=== PATIENT | female | born 1945 | race Caucasian/White ===

== ENCOUNTER 2016-05-17 21:00 | Emergency (ER) | payer MEDICARE, BC ==
[2016-05-17] MEDS ORDERED: FAMOTIDINE 20 MG/2 ML VIAL IV STA (21:21)
[2016-05-17] MEDS ORDERED: SODIUM CHLORIDE 0.9% 1,000 ML IV ONE (21:21)
[2016-05-17] MEDS ORDERED: methylPREDNISolone SOD SUCCI 125 MG/2 ML VIAL IV STA (21:21)
--- NOTE | 2016-05-17 21:23 | ED ---
General Adult HPI - General Chief complaint: Allergic Reaction Stated complaint: Tongue swelling Time Seen by Provider: 05/17/16 21:15 Source: patient, family, RN notes reviewed, old records reviewed Mode of arrival: ambulatory Limitations: no limitations - History of Present Illness Initial comments: 70-year-old female presented for ALLERGIC reaction. Patient states that 3 hours ago she started to feel her tongue swelling. She states that she has multiple ALLERGIES but is unsure what she was exposed to today. She did take 75 mg of Benadryl about 8:30 this evening. She states that she is not having any shortness of breath at this time. She's not having trouble swallowing. She denies any chest pain. She denies any rash. - Related Data Home Medications Medication Instructions Recorded Confirmed Multivitamins, Thera [Multivitamin] 1 tab PO DAILY 05/13/14 10/27/15 Cholecalciferol [Vitamin D3] 1,000 unit PO DAILY 05/28/15 10/27/15 Cyanocobalamin [Vitamin B-12] 500 mcg PO DAILY 05/28/15 10/27/15 [place]-3 Fatty Acids/Fish Oil [Fish 1 cap PO DAILY 05/28/15 10/27/15 Oil 1,000 mg Softgel] Meclizine [Antivert] 25 mg PO TID PRN 05/30/15 10/27/15 Magnesium 200 mg PO DAILY 10/02/15 10/27/15 Previous Rx's Medication Instructions Recorded Cetirizine HCl [Zyrtec] 10 mg PO DAILY #10 tab 10/02/15 EPINEPHrine (Auto Inject) [Epipen] 0.3 mg IM ONCE PRN #1 syringe 10/02/15 Famotidine [Pepcid] 20 mg PO BID #10 tablet 10/02/15 predniSONE 50 mg PO DAILY #3 tab 10/02/15 predniSONE 40 mg PO DAILY #8 tab 10/27/15 predniSONE 50 mg PO DAILY #5 tab 05/17/16 Allergies Allergy/AdvReac Type Severity Reaction Status Date / Time cat dander Allergy Unknown Verified 05/17/16 21:14 dog dander Allergy Unknown Verified 05/17/16 21:14 Iodinated Contrast Media - Allergy Unknown Verified 05/17/16 21:14 Oral and [Iodinated Contrast Media - IV Dye] iodine Allergy Unknown Verified 05/17/16 21:14 mold Allergy Unknown Verified 05/17/16 21:14 ragweed pollen Allergy Unknown Verified 05/17/16 21:14 trees Allergy Unknown Uncoded 05/17/16 21:14 Review of Systems ROS Statement: Those systems with pertinent positive or pertinent negative responses have been documented in the HPI. ROS Other: All systems not noted in ROS Statement are negative. Past Medical History Past Medical History: GERD/Reflux, Osteoarthritis (OA) Additional Past Medical History / Comment(s): Chronic SIMEON. OCC DIZZYNESS. OCC GERD. VARICOSE VEINS. HEMATURIA. History of Any Multi-Drug Resistant Organisms: None Reported Past Surgical History: Adenoidectomy, Appendectomy, Section, Joint Replacement, Orthopedic Surgery, Tonsillectomy Additional Past Surgical History / Comment(s): Bret Knee Replacement; RT Wrist surgery Past Anesthesia/Blood Transfusion Reactions: Motion Sickness Additional Past Anesthesia/Blood Transfusion Reaction / Comment(s): ONLY HX OF NV W/ ETHER YEARS AGO. Past Psychological History: No Psychological Hx Reported Smoking Status: Former smoker Past Alcohol Use History: Occasional Additional Past Alcohol Use History / Comment(s): SMOKES 1/2 PPD X50 YEARS EST Past Drug Use History: None Reported - Past Family History Mother Family Medical History: Cancer Additional Family Medical History / Comment(s): lung cancer General Exam - General Exam Comments Initial Comments: General: Awake and Alert. No acute distress. Does not appear acutely ill. Eyes: PRAVEEN, EOM intact. No nystagmus. No scleral icterus. HENT: Atraumatic, normocephalic. Mucous membranes moist. Trachea midline. No throat edema or airway compromise. Tongue appears normal shape and size. Neck: The neck is supple, there is no tenderness or JVD. Cardiovascular: Regular rate and rhythm. No murmur, rub, or gallop is appreciated. Distal pulses intact. Respiratory: Lungs are clear to auscultation bilaterally. No wheezes, rales, rhonchi. No respiratory distress. Gastrointestinal: Soft, Nontender. No rebound or guarding. Non-distended. No masses or organomegaly noted. No CVA tenderness. Musculoskeletal: No tenderness. Normal ROM. No gross deformity. No strength deficits. Neurological: A&Ox3. CN II-XII grossly intact, There are no obvious motor or sensory deficits. Coordination appears grossly intact. Speech is normal. Skin: Skin is warm and dry and no rashes or lesions are noted. Psychiatric: Cooperative, appropriate mood & affect, normal judgment. Limitations: no limitations Course Vital Signs 05/17/16 05/17/16 21:09 22:06 Temperature 99.0 F 97.1 F L Pulse Rate 78 66 Respiratory 18 20 Rate Blood Pressure 188/86 174/80 O2 Sat by Pulse 95 96 Oximetry Medical Decision Making - Medical Decision Making 70-year-old female presenting for ALLERGIC reaction. Patient states she has a sensation of tongue swelling. On exam she does not appear to have any edema within her throat or her tongue. 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 She does have an EpiPen at home that she did not use this, she does not appear to require epinephrine at this time. Patient was given IV fluids, Solu-Medrol, Pepcid. No Benadryl at this time she took 75 mg 45 minutes prior to arrival. Patient was observed for an extended period time without any worsening of her symptoms. She states she is feeling improved. She is not on an ELIZABETH inhibitor. Discussed continuing Benadryl every 6 hours for the next 24 hours. Will also write prescription for prednisone. Patient does have an EpiPen at home she can use as a last resort. Discussed that if she has any return or worsening of symptoms return to the ER right away for further evaluation and observation. Patient was offered observation at this time although she states feeling better and I agree that she can go home at this time. Patient is discharged in stable condition. Family is agreeable with this plan as well. Disposition Clinical Impression: Allergic reaction Disposition: HOME SELF-CARE Condition: Stable Instructions: General Allergic Reaction (ED) Additional Instructions: Please take 25 mg of Benadryl by mouth every 6 hours for the next 24 hours. If you have any return or worsening symptoms please return to the ER right away Prescriptions: predniSONE 50 mg PO DAILY #5 tab Time of Disposition: 23:00
[2016-05-17 22:08] VITALS: RESP 20
[2016-05-17 23:55] VITALS: BP 169/75; PULSE 69; TEMP 97.7
== END 2016-05-17 23:55 | disposition home or self-care (01) ==
LOC: EC 21:00
DX: T78.40XA Allergy, unspecified, initial encounter (principal); Z87.891 Personal history of nicotine dependence; Z79.899 Other long term (current) drug therapy; Z91.041 Radiographic dye allergy status; Z91.048 Other nonmedicinal substance allergy status; Z88.8 Allergy status to other drugs, medicaments and biological substances
CPT/HCPCS: 99283 ×2; 96374 ×2; 96375 ×2; 96361 ×2; J2930

== ENCOUNTER → 2016-06-06 | Outpatient (CLI) | payer MEDICARE, BC ==
[2016-06-06 09:34] LABS: Basophils # (A) 0.1 k/uL (0-0.2); Basophils % (A) 1 %; CH 32.6; CHCM 33.8; Eosinophils # (A) 0.2 k/uL (0-0.7); Eosinophils % (A) 3 %; HCT 43.7 % (34.0-46.0); HGB 14.3 gm/dL (11.4-16.0); Luc # (Auto) 0.14; Luc % (Auto) 3; Lymphocytes # (A) 1.6 k/uL (1.0-4.8); Lymphocytes % (A) 35 %; MCH 31.7 pg (25.0-35.0); MCHC 32.7 g/dL (31.0-37.0); MCV 96.9 fL (80.0-100.0); Mean Platelet Volume 8.2; Monocytes # (A) 0.2 k/uL (0-1.0); Monocytes % (A) 5 %; Neutrophils # (A) 2.4 k/uL (1.3-7.7); Neutrophils % (A) 53 %; RBC 4.52 m/uL (3.80-5.40); RDW 12.6 % (11.5-15.5); WBC 4.5 k/uL (3.8-10.6); WBC (Perox) 4.39
[2016-06-06 09:59] LABS: Appearance,Urine Cloudy (Clear); Bacteria,Urine Rare /hpf; Bilirubin,Urine Negative (Negative); Glucose,Urine (UA) Negative (Negative); Ketones,Urine Negative (Negative); Leukocyte Esterase,Urine Negative (Negative); Mucus,Urine Rare /hpf; Nitrite,Urine Negative (Negative); PH, Urine 6.5 (5.0-8.0); Particle Count 2916; Protein,Urine Negative (Negative); RBC,Urine <1 /hpf (0-5); Squamous Epithelial Cell,Urine 3 /hpf (0-4); UA Billing (MACRO vs. MICRO) MICRO; Urobilinogen,Urine <2.0 mg/dL (<2.0); WBC,Urine <1 /hpf (0-5)
[2016-06-06 13:30] LABS: Anion Gap 12 mmol/L; Blood Urea Nitrogen 16 mg/dL (7-17); Calcium 9.5 mg/dL (8.4-10.2); Carbon Dioxide 21 mmol/L (22-30); Chloride 111 mmol/L (98-107); Glucose 96 mg/dL (74-99); Iron 115 ug/dL (37-170); Magnesium 2.2 mg/dL (1.6-2.3); Non-African American GFR(MDRD) 55 (>60 ml/min/1.73 sqM); Phosphorous 3.8 mg/dL (2.5-4.5); Potassium 4.5 mmol/L (3.5-5.1); Sodium 144 mmol/L (137-145); Uric Acid 4.7 mg/dL (3.7-7.4)
[2016-06-06 13:39] LABS: % Iron Saturation 36.4 % (20-50); Total Iron Binding Capacity 316 ug/dL (265-497)
== END | disposition home or self-care (01) ==
LOC: LABWHC1 09:01
PROVIDERS: ATTEND Internal Medicine Nephrology
DX: N18.3 Chronic kidney disease, stage 3 (moderate) (principal); D64.9 Anemia, unspecified; E55.9 Vitamin D deficiency, unspecified; N25.81 Secondary hyperparathyroidism of renal origin; M10.9 Gout, unspecified; N39.0 Urinary tract infection, site not specified
CPT/HCPCS: 36415; 80048; 81001; 82306; 82728; 83540; 83550; 83735; 83970; 84100; 84550; 85025

== ENCOUNTER → 2016-06-14 | Outpatient (CLI) | payer MEDICARE, BC ==
--- NOTE | 2016-06-17 07:38 | MM ---
Reason for exam: follow-up at short interval from prior study. Last mammogram was performed 6 months ago. History: Patient is postmenopausal. Physical Findings: Nurse did not find any significant physical abnormalities on exam. MG 3D Diag Mammo W/Cad JESSI Bilateral CC and MLO view(s) were taken. Prior study comparison: December 12, 2015, right breast MG 3d diag mammo w/cad RT. May 30, 2015, bilateral MG 3d diag mammo w/cad JESSI. The breast tissue is heterogeneously dense. This may lower the sensitivity of mammography. Finding: There are typically benign punctate calcifications. Focal asymmetry lower inner right breast is stable. No significant changes in finding since December 12, 2015 and May 30, 2015. These results were verbally communicated with the patient and result sheet given to the patient on 06/14/16. ASSESSMENT: Benign, BI-RAD 2 RECOMMENDATION: Routine screening mammogram of both breasts in 1 year.
== END | disposition home or self-care (01) ==
LOC: RADMAMWWP 08:33
PROVIDERS: ATTEND Family Medicine
DX: R92.8 Other abnormal and inconclusive findings on diagnostic imaging of breast (principal)
CPT/HCPCS: G0204; G0279

== ENCOUNTER 2016-06-16 15:18 | Emergency (ER) | payer MEDICARE, BC ==
[2016-06-16] MEDS ORDERED: diphenhydrAMINE 50 MG/ML 1 ML VIAL IVP STA (15:37)
[2016-06-16] MEDS ORDERED: FAMOTIDINE 20 MG/2 ML VIAL IV STA (15:37)
[2016-06-16] MEDS ORDERED: methylPREDNISolone SOD SUCCI 125 MG/2 ML VIAL IV STA (15:38)
--- NOTE | 2016-06-16 15:44 | ED ---
Allergic Reaction HPI - General Source: patient Mode of arrival: ambulatory Limitations: no limitations - History of Present Illness MD Complaint: other (Tongue swelling) Onset/Timin -: hour(s) Exposure: unknown Symptoms: orolingual swelling Severity: moderate Treatment Prior to Arrival: none Previous Allergy History: angioedema <John Canela - Last Filed: 06/16/16 18:19> <Todd Gomez - Last Filed: 06/16/16 19:27> - General Chief complaint: Allergic Reaction Stated complaint: Swollen Tongue Time Seen by Provider: 06/16/16 15:32 - History of Present Illness Initial Comments: 's patient is 70-year-old woman who complains approximate 2 hours of tongue swelling. The patient states that she has had 4 previous episodes of this and has seen an wind tunnel mechanic. They are not sure what is causing the angioedema at this point. The patient denies dyspnea, cough or wheeze. She denies nausea, vomiting and diarrhea. (John Canela) - Related Data Home Medications Medication Instructions Recorded Confirmed Multivitamins, Thera [Multivitamin] 1 tab PO DAILY 05/13/14 06/16/16 Cholecalciferol [Vitamin D3] 2,000 unit PO DAILY 05/28/15 06/16/16 Cyanocobalamin [Vitamin B-12] 500 mcg PO DAILY 05/28/15 06/16/16 Meclizine [Antivert] 25 mg PO TID PRN 05/30/15 06/16/16 Magnesium 400 mg PO DAILY 10/02/15 06/16/16 Acetaminophen Tab [Tylenol Tab] 1,000 mg PO BID PRN 06/16/16 06/16/16 diphenhydrAMINE [Benadryl] 75 mg PO BID PRN 06/16/16 06/16/16 Previous Rx's Medication Instructions Recorded Famotidine [Pepcid] 20 mg PO BID #20 tablet 06/16/16 diphenhydrAMINE [Benadryl] 50 mg PO QID PRN #20 capsule 06/16/16 methylPREDNISolone Dose Pack 4 mg PO DIRECTED #21 package 06/16/16 [Medrol Dose Pack] Allergies Allergy/AdvReac Type Severity Reaction Status Date / Time cat dander Allergy Unknown Verified 05/17/16 21:14 dog dander Allergy Unknown Verified 05/17/16 21:14 Iodinated Contrast Media - Allergy Unknown Verified 06/16/16 16:00 Oral and [Iodinated Contrast Media - IV Dye] iodine Allergy Unknown Verified 05/17/16 21:14 mold Allergy Unknown Verified 05/17/16 21:14 ragweed pollen Allergy Unknown Verified 05/17/16 21:14 trees Allergy Unknown Uncoded 05/17/16 21:14 Review of Systems ROS Other: All systems not noted in ROS Statement are negative. Constitutional: Denies: fever, chills Eyes: Denies: eye pain, eye discharge ENT: Reports: other (Tongue swelling). Denies: throat pain, congestion Respiratory: Denies: cough, dyspnea, wheezes Cardiovascular: Denies: chest pain, edema, syncope Gastrointestinal: Denies: abdominal pain, vomiting, diarrhea Skin: Denies: rash Neurological: Denies: headache <HiltonJohn - Last Filed: 06/16/16 18:19> ROS Other: All systems not noted in ROS Statement are negative. <Todd Gomez - Last Filed: 06/16/16 19:27> ROS Statement: Those systems with pertinent positive or pertinent negative responses have been documented in the HPI. Past Medical History Past Medical History: GERD/Reflux, Osteoarthritis (OA) Additional Past Medical History / Comment(s): Chronic SIMEON. OCC DIZZYNESS. OCC GERD. VARICOSE VEINS. HEMATURIA. History of Any Multi-Drug Resistant Organisms: None Reported Past Surgical History: Adenoidectomy, Appendectomy, Section, Joint Replacement, Orthopedic Surgery, Tonsillectomy Additional Past Surgical History / Comment(s): Bret Knee Replacement; RT Wrist surgery Past Anesthesia/Blood Transfusion Reactions: Motion Sickness Additional Past Anesthesia/Blood Transfusion Reaction / Comment(s): ONLY HX OF NV W/ ETHER YEARS AGO. Past Psychological History: No Psychological Hx Reported Smoking Status: Former smoker Past Alcohol Use History: Occasional Additional Past Alcohol Use History / Comment(s): SMOKES 1/2 PPD X50 YEARS EST Past Drug Use History: None Reported - Past Family History Mother Family Medical History: Cancer Additional Family Medical History / Comment(s): lung cancer <HiltonJohn - Last Filed: 06/16/16 18:19> General Exam Limitations: no limitations General appearance: alert, in no apparent distress Head exam: Present: atraumatic, normocephalic Eye exam: Present: normal appearance. Absent: scleral icterus, conjunctival injection ENT exam: Present: mucous membranes moist, other (There is symmetric tongue swelling, moderate degree. Patient is able to handle her own secretions and there is no dyspnea) Neck exam: Present: normal inspection, full ROM. Absent: tenderness, lymphadenopathy Respiratory exam: Present: normal lung sounds bilaterally. Absent: respiratory distress, wheezes, rales, rhonchi, stridor Cardiovascular Exam: Present: regular rate, normal rhythm, normal heart sounds. Absent: systolic murmur, diastolic murmur, rubs, gallop GI/Abdominal exam: Present: soft. Absent: distended, tenderness, guarding, rebound Extremities exam: Present: normal inspection, normal capillary refill. Absent: pedal edema, calf tenderness Neurological exam: Present: alert Skin exam: Present: warm, dry, intact, normal color. Absent: rash <John Canela - Last Filed: 06/16/16 18:19> Course <John Canela - Last Filed: 06/16/16 18:19> <Todd Gomez - Last Filed: 06/16/16 19:27> Vital Signs 06/16/16 06/16/16 06/16/16 15:21 15:46 16:16 Temperature 98.2 F Pulse Rate 71 70 70 Respiratory 18 18 18 Rate Blood Pressure 197/87 180/87 179/97 O2 Sat by Pulse 100 99 100 Oximetry 06/16/16 06/16/16 06/16/16 16:46 16:59 18:00 Temperature 97.8 F Pulse Rate 72 70 74 Respiratory 16 18 20 Rate Blood Pressure 198/81 167/72 157/77 O2 Sat by Pulse 99 100 98 Oximetry - Reevaluation(s) Reevaluation #2: 06/16/16 19:27 Patient is doing well at this time she can protrude her tongue swelling is better she can swallow. Was sent home with a Medrol Dosepak Pepcid and Benadryl. She is to return if any difficulty. (Todd Gomez) Disposition <John Canela - Last Filed: 06/16/16 18:19> Time of Disposition: 19:27 <Todd Gomez - Last Filed: 06/16/16 19:27> Clinical Impression: Angioedema Disposition: HOME SELF-CARE Condition: Fair Instructions: Angioedema (ED) Prescriptions: Famotidine [Pepcid] 20 mg PO BID #20 tablet diphenhydrAMINE [Benadryl] 50 mg PO QID PRN #20 capsule PRN Reason: Allergic Reaction methylPREDNISolone Dose Pack [Medrol Dose Pack] 4 mg PO DIRECTED #21 package Referrals: Lizzy Gloria III, MD [Primary Care Provider] - 1-2 days
[2016-06-16 19:51] VITALS: BP 172/82; PULSE 80; RESP 18; TEMP 97.6
== END 2016-06-16 19:51 | disposition home or self-care (01) ==
LOC: EC 15:18
DX: T78.3XXA Angioneurotic edema, initial encounter (principal); Z79.899 Other long term (current) drug therapy; Z91.041 Radiographic dye allergy status; Z91.048 Other nonmedicinal substance allergy status; K21.9 Gastro-esophageal reflux disease without esophagitis; Z87.891 Personal history of nicotine dependence
CPT/HCPCS: 36415; 86160 ×2; 86161; 99283; 96374; 96375; J1200; J2930

== ENCOUNTER → 2016-06-21 | Outpatient (CLI) | payer MEDICARE, BC ==
--- NOTE | 2016-06-21 19:50 | CT ---
EXAMINATION TYPE: CT chest wo con DATE OF EXAM: 06/21/2016 7:16 PM COMPARISON: NONE HISTORY: Pt states of lung nodule found on CXR. CT DLP: 310.1 mGycm. Automated Exposure Control for Dose Reduction was Utilized. TECHNIQUE: CT scan of the thorax is performed without IV contrast. FINDINGS: LUNGS: The lungs are grossly clear, there is no concerning parenchymal mass. A 5 mm peripheral pulmon teofilo nodule is seen within the right upper lobe. Nodular right apical pleural parenchymal scarring is also noted. No other pulmonary nodules are seen. There is no pleural effusion or pneumothorax seen. The tracheobronchial tree is patent. MEDIASTINUM: Lack of IV contrast is noted to limit evaluation for mediastinal and especially hilar ad enopathy. There are no definitive greater than 1 cm hilar or mediastinal lymph nodes. No cardiomega ly or pericardial effusion is seen. OTHER: Ectasia and tortuosity of the descending thoracic aorta just proximal to the diaphragmatic hia tus is evident as the aorta measures 3.3 cm. Surgical clips are noted within the right upper quadrant . Additionally gastrohepatic varices are seen. No esophageal varices noted. Compression deformity is noted of a lower thoracic vertebrae with a Schmorl's node and endplate changes. Vacuum disc disease i s also seen. No retrolisthesis or retropulsion. IMPRESSION: 1. 5 mm right upper lobe pulmonary nodule as seen on the prior chest radiograph. Nodular right apical pleural parenchymal scarring is also noted. Follow-up CT is recommended in 6-12 months for further e valuation. 2. Although there is limited evaluation of the hilar structures due to the lack of intravenous contra st there is no gross evidence for hilar or mediastinal lymphadenopathy. 3. Lower thoracic compression deformity of indeterminate age. 4. Ectasia and tortuosity of the descending thoracic aorta measuring up to 3.3 cm. 5. Gastrohepatic ligament varices.
== END | disposition home or self-care (01) ==
LOC: RADCTMAIN 19:03
PROVIDERS: ATTEND Family Medicine
DX: R91.1 Solitary pulmonary nodule (principal); J98.4 Other disorders of lung; I77.810 Thoracic aortic ectasia
CPT/HCPCS: 71250

== ENCOUNTER → 2016-11-04 | Outpatient (CLI) | payer MEDICARE, BC ==
[2016-11-04 10:00] LABS: Basophils # (A) 0.1 k/uL (0-0.2); Basophils % (A) 2 %; CH 32.7; CHCM 34.1; Eosinophils # (A) 0.2 k/uL (0-0.7); Eosinophils % (A) 6 %; HCT 44.1 % (34.0-46.0); HDW 2.37; HGB 14.7 gm/dL (11.4-16.0); Luc # (Auto) 0.07; Luc % (Auto) 2; Lymphocytes # (A) 1.7 k/uL (1.0-4.8); Lymphocytes % (A) 41 %; MCH 32.2 pg (25.0-35.0); MCHC 33.4 g/dL (31.0-37.0); MCV 96.4 fL (80.0-100.0); Mean Platelet Volume 9.3; Monocytes # (A) 0.2 k/uL (0-1.0); Monocytes % (A) 5 %; Neutrophils # (A) 1.9 k/uL (1.3-7.7); Neutrophils % (A) 46 %; RBC 4.57 m/uL (3.80-5.40); WBC 4.1 k/uL (3.8-10.6); WBC (Perox) 3.98
[2016-11-04 10:26] LABS: Appearance,Urine Clear (Clear); Bilirubin,Urine Negative (Negative); Glucose,Urine (UA) Negative (Negative); Ketones,Urine Negative (Negative); Leukocyte Esterase,Urine Negative (Negative); Nitrite,Urine Negative (Negative); Protein,Urine Negative (Negative); Specific Gravity,Urine 1.011 (1.001-1.035); UA Billing (MACRO vs. MICRO) CHEM; Urobilinogen,Urine <2.0 mg/dL (<2.0)
[2016-11-04 11:59] LABS: Anion Gap 9 mmol/L; Blood Urea Nitrogen 9 mg/dL (7-17); Calcium 9.8 mg/dL (8.4-10.2); Carbon Dioxide 24 mmol/L (22-30); Chloride 112 mmol/L (98-107); Glucose 84 mg/dL (74-99); Iron 136 ug/dL (37-170); Magnesium 2.2 mg/dL (1.6-2.3); Non-African American GFR(MDRD) 54 (>60 ml/min/1.73 sqM); Phosphorous 3.4 mg/dL (2.5-4.5); Potassium 4.4 mmol/L (3.5-5.1); Sodium 145 mmol/L (137-145); Uric Acid 4.8 mg/dL (3.7-7.4)
[2016-11-04 12:07] LABS: % Iron Saturation 43.5 % (20-50); Total Iron Binding Capacity 313 ug/dL (265-497)
== END | disposition home or self-care (01) ==
LOC: LABWHC1 09:40
PROVIDERS: ATTEND Nurse Practitioner Family
DX: N18.3 Chronic kidney disease, stage 3 (moderate) (principal); D64.9 Anemia, unspecified; E55.9 Vitamin D deficiency, unspecified; E21.3 Hyperparathyroidism, unspecified; M10.9 Gout, unspecified; R80.9 Proteinuria, unspecified
CPT/HCPCS: 36415; 80048; 81003; 82306; 82728; 83540; 83550; 83735; 83970; 84100; 84550; 85025

== ENCOUNTER → 2016-12-30 | Outpatient (CLI) | payer MEDICARE, BC ==
--- NOTE | 2016-12-30 09:06 | CT ---
EXAMINATION TYPE: CT chest wo con DATE OF EXAM: 12/30/2016 COMPARISON: Prior CT chest 06/21/2016 HISTORY: Solitary pulmonary nodule CT DLP: 598 mGycm. Automated Exposure Control for Dose Reduction was Utilized. TECHNIQUE: CT scan of the thorax is performed without IV contrast. FINDINGS: Lack of contrast could compromise sensitivity. LUNGS: The right lateral aspect of the trachea shows a luminal irregularity, minimal soft tissue focu s on axial image 13, retained secretions are within the differential. There is no pleural or pericard ial effusion present. Some minimal increased density seen adjacent to the right lateral aspect of the spine on axial image 43 is thought likely to represent some localized atelectasis, difficult to excl ude minimal pneumonitis. Posterior costophrenic sulcus on the right and left shows some probable mini mal dependent atelectatic change. Some minimal right upper lobe subpleural increased density likely o f no significance clinically is again seen. Scattered emphysematous changes are present. Mild ectasia of the descending aorta. There are atherosclerotic calcifications. Coronary artery calcifications are present. There may be a small hiatal hernia present. Retrocaval pr etracheal lymph node shows a short axis of approximately 12 mm. No axillary or hilar adenopathy. IMPRESSION: Stable exam, benign findings as described. Patient shows postnephrectomy change on the right. MEDIASTINUM: Lack of IV contrast is noted to limit evaluation for mediastinal and especially hilar ad enopathy. There are no definitive greater than 1 cm hilar or mediastinal lymph nodes. No cardiomega ly or pericardial effusion is seen. OTHER: No additional significant abnormality is seen. IMPRESSION:
== END | disposition home or self-care (01) ==
LOC: RADCTMAIN 06:49
PROVIDERS: ATTEND Internal Medicine Critical Care Medicine
DX: R91.1 Solitary pulmonary nodule (principal)
CPT/HCPCS: 71250

== ENCOUNTER → 2017-02-06 | Outpatient (CLI) | payer MEDICARE, BC ==
[2017-02-06 08:18] LABS: Calcium 9.7 mg/dL (8.4-10.2); Potassium 4.1 mmol/L (3.5-5.1)
== END | disposition home or self-care (01) ==
LOC: LABWHC1 07:48
PROVIDERS: ATTEND Nurse Practitioner Family
DX: N18.3 Chronic kidney disease, stage 3 (moderate) (principal)
CPT/HCPCS: 36415; 80048

== ENCOUNTER → 2017-04-23 | Outpatient (CLI) | payer MEDICARE, BC ==
[2017-04-23 09:00] LABS: Basophils # (A) 0.1 k/uL (0-0.2); Basophils % (A) 1 %; Eosinophils # (A) 0.2 k/uL (0-0.7); Eosinophils % (A) 4 %; HCT 44.1 % (34.0-46.0); HGB 14.5 gm/dL (11.4-16.0); Lymphocytes # (A) 1.8 k/uL (1.0-4.8); Lymphocytes % (A) 42 %; MCH 31.9 pg (25.0-35.0); MCV 96.7 fL (80.0-100.0); Mean Platelet Volume 8.9; Monocytes # (A) 0.3 k/uL (0-1.0); Monocytes % (A) 7 %; Neutrophils # (A) 1.9 k/uL (1.3-7.7); Neutrophils % (A) 44 %; Platelet Count 177 k/uL (150-450); RBC 4.56 m/uL (3.80-5.40); RDW 13.2 % (11.5-15.5); WBC 4.4 k/uL (3.8-10.6)
[2017-04-23 09:01] LABS: Appearance,Urine Clear (Clear); Bilirubin,Urine Negative (Negative); Blood,Urine Negative (Negative); Color,Urine Yellow; Glucose,Urine (UA) Negative (Negative); Ketones,Urine Trace (Negative); Leukocyte Esterase,Urine Negative (Negative); Nitrite,Urine Negative (Negative); Protein,Urine Negative (Negative); Specific Gravity,Urine 1.012 (1.001-1.035); Urobilinogen,Urine <2.0 mg/dL (<2.0)
[2017-04-23 09:02] LABS: Anion Gap 11 mmol/L; Blood Urea Nitrogen 20 mg/dL (7-17); Calcium 10.2 mg/dL (8.4-10.2); Carbon Dioxide 23 mmol/L (22-30); Chloride 108 mmol/L (98-107); Glucose 85 mg/dL (74-99); Magnesium 2.2 mg/dL (1.6-2.3); Phosphorus 4.1 mg/dL (2.5-4.5); Potassium 4.2 mmol/L (3.5-5.1); Sodium 142 mmol/L (137-145); Uric Acid 5.2 mg/dL (3.7-7.4)
[2017-04-23 16:13] LABS: Iron Saturation 35.48 (12.00-45.00)
[2017-04-23 16:27] LABS: Vitamin D 25 Hydroxy 36.5 ng/mL (30.0-100.0)
[2017-04-23 17:16] LABS: Parathyroid Hormone Intact 31.8 pg/mL (14.0-72.0)
== END | disposition home or self-care (01) ==
LOC: LABWHC1 08:06
PROVIDERS: ATTEND Nurse Practitioner Family
DX: E55.9 Vitamin D deficiency, unspecified (principal); D63.1 Anemia in chronic kidney disease; N18.3 Chronic kidney disease, stage 3 (moderate); M10.9 Gout, unspecified; N39.0 Urinary tract infection, site not specified
CPT/HCPCS: 36415; 80048; 81003; 82306; 82728; 83540; 83550; 83735; 83970; 84100; 84550; 85025

== ENCOUNTER → 2017-06-03 | Outpatient (CLI) | payer MEDICARE, BC ==
--- NOTE | 2017-06-04 10:39 | MM ---
Reason for exam: screening (asymptomatic). Last mammogram was performed 1 year ago. History: Patient is postmenopausal. Physical Findings: A clinical breast exam by your physician is recommended on an annual basis and results should be correlated with mammographic findings. MG 3D Screening Mammo W/Cad Bilateral CC and MLO view(s) were taken. Prior study comparison: June 14, 2016, bilateral MG 3d diag mammo w/cad JESSI. December 12, 2015, right breast MG 3d diag mammo w/cad RT. The breast tissue is heterogeneously dense. This may lower the sensitivity of mammography. Stable benign calcifications bilaterally. No significant changes when compared with prior studies. ASSESSMENT: Benign, BI-RAD 2 RECOMMENDATION: Routine screening mammogram of both breasts in 1 year.
== END | disposition home or self-care (01) ==
LOC: RADMAMWWP 07:32
PROVIDERS: ATTEND Family Medicine
DX: Z12.31 Encounter for screening mammogram for malignant neoplasm of breast (principal)
CPT/HCPCS: 77063; 77067

== ENCOUNTER → 2017-08-08 | Outpatient (CLI) | payer MEDICARE, BC ==
[2017-08-08 09:03] LABS: Calcium 9.9 mg/dL (8.4-10.2); Potassium 4.5 mmol/L (3.5-5.1)
== END | disposition home or self-care (01) ==
LOC: LABWHC1 07:48
PROVIDERS: ATTEND Nurse Practitioner Family
DX: N18.3 Chronic kidney disease, stage 3 (moderate) (principal)
CPT/HCPCS: 36415; 80048

== ENCOUNTER → 2017-11-17 | Outpatient (CLI) | payer MEDICARE, BC ==
[2017-11-17 10:20] LABS: Appearance,Urine Clear (Clear); Bilirubin,Urine Negative (Negative); Blood,Urine Negative (Negative); Color,Urine Light Yellow; Glucose,Urine (UA) Negative (Negative); Ketones,Urine Negative (Negative); Leukocyte Esterase,Urine Negative (Negative); Nitrite,Urine Negative (Negative); PH, Urine 6.5 (5.0-8.0); Protein,Urine Negative (Negative); Specific Gravity,Urine 1.011 (1.001-1.035); Urobilinogen,Urine <2.0 mg/dL (<2.0)
[2017-11-17 10:31] LABS: Basophils # (A) 0.1 k/uL (0-0.2); Basophils % (A) 1 %; Eosinophils # (A) 0.3 k/uL (0-0.7); Eosinophils % (A) 6 %; HCT 42.2 % (34.0-46.0); HGB 13.6 gm/dL (11.4-16.0); Lymphocytes # (A) 2.1 k/uL (1.0-4.8); Lymphocytes % (A) 48 %; MCH 32.2 pg (25.0-35.0); MCHC 32.1 g/dL (31.0-37.0); MCV 100.1 fL (80.0-100.0); Monocytes # (A) 0.2 k/uL (0-1.0); Monocytes % (A) 4 %; Neutrophils # (A) 1.7 k/uL (1.3-7.7); Neutrophils % (A) 39 %; Platelet Count 171 k/uL (150-450); RBC 4.22 m/uL (3.80-5.40); RDW 13.1 % (11.5-15.5); WBC 4.4 k/uL (3.8-10.6)
[2017-11-17 10:47] LABS: Albumin 3.7 g/dL (3.5-5.0); Calcium 9.5 mg/dL (8.4-10.2); Phosphorus 4.5 mg/dL (2.5-4.5); Potassium 4.6 mmol/L (3.5-5.1); Uric Acid 3.9 mg/dL (3.7-7.4)
[2017-11-17 16:52] LABS: Iron Saturation 32.38 (12.00-45.00); Vitamin D 25 Hydroxy 47.9 ng/mL (30.0-100.0)
== END | disposition home or self-care (01) ==
LOC: LABWHC1 09:24
PROVIDERS: ATTEND Nurse Practitioner Family
DX: E55.9 Vitamin D deficiency, unspecified (principal); D63.1 Anemia in chronic kidney disease; N18.3 Chronic kidney disease, stage 3 (moderate); N39.0 Urinary tract infection, site not specified; M10.9 Gout, unspecified
CPT/HCPCS: 36415; 80048; 81003; 82040; 82306; 82728; 83540; 83550; 83735; 83970; 84100; 84550; 85025

== ENCOUNTER → 2018-05-15 | Outpatient (CLI) | payer MEDICARE, BC ==
[2018-05-15 09:51] LABS: Basophils # (A) 0.1 k/uL (0-0.2); Basophils % (A) 2 %; Eosinophils # (A) 0.3 k/uL (0-0.7); Eosinophils % (A) 6 %; HCT 42.5 % (34.0-46.0); HGB 13.4 gm/dL (11.4-16.0); Lymphocytes # (A) 1.8 k/uL (1.0-4.8); Lymphocytes % (A) 41 %; MCH 31.3 pg (25.0-35.0); MCHC 31.5 g/dL (31.0-37.0); MCV 99.1 fL (80.0-100.0); Mean Platelet Volume 7.2; Monocytes # (A) 0.2 k/uL (0-1.0); Monocytes % (A) 5 %; Neutrophils # (A) 1.9 k/uL (1.3-7.7); Neutrophils % (A) 44 %; Platelet Count 179 k/uL (150-450); RBC 4.29 m/uL (3.80-5.40); RDW 12.8 % (11.5-15.5); WBC 4.3 k/uL (3.8-10.6)
[2018-05-15 09:55] LABS: Appearance,Urine Cloudy (Clear); Bacteria,Urine Few /hpf; Bilirubin,Urine Negative (Negative); Blood,Urine Negative (Negative); Color,Urine Yellow; Glucose,Urine (UA) Negative (Negative); Hyaline Casts,Urine 2 /lpf (0-2); Ketones,Urine Negative (Negative); Leukocyte Esterase,Urine Large (Negative); Mucus,Urine Rare /hpf; Nitrite,Urine Positive (Negative); Protein,Urine Negative (Negative); RBC,Urine 2 /hpf (0-5); Specific Gravity,Urine 1.012 (1.001-1.035); Urobilinogen,Urine <2.0 mg/dL (<2.0); WBC,Urine 157 /hpf (0-5)
[2018-05-15 16:13] LABS: Iron Saturation 25.71 (12.00-45.00)
[2018-05-15 16:21] LABS: Vitamin D 25 Hydroxy 31.7 ng/mL (30.0-100.0)
[2018-05-15 16:24] LABS: Anion Gap 6.7 mmol/L (4.00-12.00); Calcium 9.6 mg/dL (8.7-10.3); Carbon Dioxide 25.3 mmol/L (21.6-31.8); Magnesium 1.9 mg/dL (1.5-2.4); Phosphorus 4.2 mg/dL (2.4-5.1); Uric Acid 3.7 mg/dL (2.9-7.7)
[2018-05-15 16:44] LABS: Parathyroid Hormone Intact 27.1 pg/mL (14.0-72.0)
== END ==
LOC: LABWHC1 09:14
PROVIDERS: ATTEND Internal Medicine Nephrology
DX: E55.9 Vitamin D deficiency, unspecified (principal); E21.3 Hyperparathyroidism, unspecified; N39.0 Urinary tract infection, site not specified; M10.9 Gout, unspecified; D63.1 Anemia in chronic kidney disease; N18.3 Chronic kidney disease, stage 3 (moderate)
CPT/HCPCS: 36415; 80048; 81001; 82306; 82728; 83540; 83550; 83735; 83970; 84100; 84550; 85025

== ENCOUNTER → 2018-06-04 | Outpatient (CLI) | payer MEDICARE, BC ==
--- NOTE | 2018-06-08 08:15 | MM ---
Reason for exam: screening (asymptomatic). Last mammogram was performed 1 year ago. History: Patient is postmenopausal. Physical Findings: A clinical breast exam by your physician is recommended on an annual basis and results should be correlated with mammographic findings. MG 3D Screening Mammo W/Cad Bilateral CC and MLO view(s) were taken. Prior study comparison: June 03, 2017, bilateral MG 3d screening mammo w/cad. June 14, 2016, bilateral MG 3d diag mammo w/cad JESSI. The breast tissue is heterogeneously dense. This may lower the sensitivity of mammography. No significant changes when compared with prior studies. ASSESSMENT: Benign, BI-RAD 2 RECOMMENDATION: Routine screening mammogram of both breasts in 1 year.
== END | disposition home or self-care (01) ==
LOC: RADMAMWWP 09:45
PROVIDERS: ATTEND Family Medicine
DX: Z12.31 Encounter for screening mammogram for malignant neoplasm of breast (principal)
CPT/HCPCS: 77063; 77067

== ENCOUNTER 2018-06-30 23:42 | Emergency (ER) | payer MEDICARE, BC ==
[2018-06-30 23:49] VITALS: BP 172/88; PULSE 69; RESP 16; TEMP 98.4
[2018-07-01] MEDS ORDERED: methylPREDNISolone SOD SUCCI 125 MG/2 ML VIAL IM ONE (00:35)
--- NOTE | 2018-07-01 00:35 | ED ---
Allergic Reaction HPI - General Chief complaint: Allergic Reaction Stated complaint: Swelling of tongue Time Seen by Provider: 06/30/18 23:52 Source: patient Mode of arrival: ambulatory Limitations: no limitations - History of Present Illness Initial Comments: Sheri Rao a pleasant 72-year-old female with a history of idiopathic angioedema of the tongue. Patient presents the emergency department today with report that around 6 PM she noticed her tongue was swelling she took 50 mg of oral Benadryl. The evening she felt like her uvula may be swelling so she took an additional 25 and then immediately prior to arrival in the emergency department took an additional 25 mg of Benadryl. Patient reports she feels that the swelling of her tongue has resolved however she feels discomfort with swallowing and was concerned she may have persistent swelling of her uvula which she is having the past. - Related Data Home Medications Medication Instructions Recorded Confirmed Multivitamins, Thera [Multivitamin 1 tab PO DAILY 05/13/14 06/16/16 (formulary)] Cholecalciferol [Vitamin D3] 2,000 unit PO DAILY 05/28/15 06/16/16 Cyanocobalamin [Vitamin B-12] 500 mcg PO DAILY 05/28/15 06/16/16 Meclizine [Antivert] 25 mg PO TID PRN 05/30/15 06/16/16 Magnesium 400 mg PO DAILY 10/02/15 06/16/16 Acetaminophen Tab [Tylenol Tab] 1,000 mg PO BID PRN 06/16/16 06/16/16 diphenhydrAMINE [Benadryl] 75 mg PO BID PRN 06/16/16 06/16/16 Previous Rx's Medication Instructions Recorded Famotidine [Pepcid] 20 mg PO BID #20 tablet 06/16/16 diphenhydrAMINE [Benadryl] 50 mg PO QID PRN #20 capsule 06/16/16 methylPREDNISolone Dose Pack 4 mg PO DIRECTED #21 package 06/16/16 [Medrol Dose Pack] Allergies Allergy/AdvReac Type Severity Reaction Status Date / Time cat dander Allergy Unknown Verified 06/30/18 23:50 dog dander Allergy Unknown Verified 06/30/18 23:50 Iodinated Contrast- Oral and Allergy Unknown Verified 06/30/18 23:50 IV Dye [Iodinated Contrast Media - IV Dye] iodine Allergy Unknown Verified 06/30/18 23:50 mold Allergy Unknown Verified 06/30/18 23:50 ragweed pollen Allergy Unknown Verified 06/30/18 23:50 trees Allergy Unknown Uncoded 06/30/18 23:50 Review of Systems ROS Statement: Those systems with pertinent positive or pertinent negative responses have been documented in the HPI. ROS Other: All systems not noted in ROS Statement are negative. Past Medical History Past Medical History: GERD/Reflux, Osteoarthritis (OA) Additional Past Medical History / Comment(s): Chronic SIMEON. OCC DIZZYNESS. OCC GERD. VARICOSE VEINS. HEMATURIA. History of Any Multi-Drug Resistant Organisms: None Reported Past Surgical History: Adenoidectomy, Appendectomy, Section, Joint Replacement, Orthopedic Surgery, Tonsillectomy Additional Past Surgical History / Comment(s): Bret Knee Replacement; RT Wrist surgery Past Anesthesia/Blood Transfusion Reactions: Motion Sickness Additional Past Anesthesia/Blood Transfusion Reaction / Comment(s): ONLY HX OF NV W/ ETHER YEARS AGO. Past Psychological History: No Psychological Hx Reported Smoking Status: Former smoker Past Alcohol Use History: Occasional Past Drug Use History: None Reported - Past Family History Mother Family Medical History: Cancer Additional Family Medical History / Comment(s): lung cancer General Exam - General Exam Comments Initial Comments: Physical Exam GENERAL: Patient is well-developed and well-nourished. Patient is nontoxic and well- hydrated and is in no distress. HENT: Normocephalic, Atraumatic. Normal oropharynx, no angioedema noted No angioedema of the uvula No cervical adenopathy No stridor EYES: PERRL, EOMI PULMONARY: Unlabored respirations. No audible rales rhonchi or wheezing was noted. CARDIOVASCULAR: There is a regular rate and rhythm without any murmurs gallops or rubs. ABDOMEN: Soft and nontender with normal bowel sounds. SKIN: Skin is clear with no lesions or rashes and otherwise unremarkable. : Deferred NEUROLOGIC: Patient is alert and oriented x3. Moving all extremities spontaneously MUSCULOSKELETAL: Normal extremities with adequate strength and full range of motion. No lower extremity swelling or edema. No calf tenderness. PSYCHIATRIC: Normal psychiatric evaluation. Limitations: no limitations Limitations: no limitations Course Vital Signs 06/30/18 23:43 Temperature 98.4 F Pulse Rate 69 Respiratory 16 Rate Blood Pressure 172/88 O2 Sat by Pulse 99 Oximetry Medical Decision Making - Medical Decision Making Patient was seen and evaluated Patient has had 100 mg of Benadryl 6 hours prior to arrival Patient's physical exam is unremarkable, there is no obvious angioedema, she is tolerating oral secretions though she reports difficulty in swallowing, she has been able to swallow fluids and has been able to take Benadryl. Patient was reevaluated 30 minutes after arrival. Physical exam is unchanged she is able to drink a glass of water. Patient does state that she's been given steroids in the past. IM Solu-Medrol was ordered and administered. Patient was again reevaluated. She sitting comfortably she has drink her entire glass of water, as ago exam is still without any signs of angioedema. At this time she is comfortable with the plan for discharge home and outpatient follow- up. Critical Care Time Critical Care Time: Yes Total Critical Care Time: 15 Critical Care Time: Critical Care Critical care time was exclusive of separately billable procedures and treating other patients. Critical care was necessary to treat or prevent imminent or life-threatening deterioration. Critical care was time spent personally by me on the following activities: development of treatment plan with patient or surrogate, discussions with consultants, discussions with primary provider, evaluation of patient's response to treatment, examination of patient, obtaining history from patient or surrogate, ordering and performing treatments and interventions, ordering and review of laboratory studies, ordering and review of radiographic studies, pulse oximetry, re-evaluation of patient's condition and review of old charts. Disposition Clinical Impression: Angioedema Disposition: HOME SELF-CARE Instructions (If sedation given, give patient instructions): Angioedema (ED) Is patient prescribed a controlled substance at d/c from ED?: No Referrals: Lizzy Gloria III, MD [Primary Care Provider] - 1-2 days
== END 2018-07-01 01:11 | disposition home or self-care (01) ==
LOC: EC 23:42
DX: T78.3XXA Angioneurotic edema, initial encounter (principal); M19.90 Unspecified osteoarthritis, unspecified site; Z87.891 Personal history of nicotine dependence; Z90.49 Acquired absence of other specified parts of digestive tract; Z96.653 Presence of artificial knee joint, bilateral; Z98.890 Other specified postprocedural states; Z79.899 Other long term (current) drug therapy; Z91.041 Radiographic dye allergy status; Z91.048 Other nonmedicinal substance allergy status
CPT/HCPCS: 96372; 99284

== ENCOUNTER → 2018-11-07 | Outpatient (CLI) | payer MEDICARE, BC ==
--- NOTE | 2018-11-08 12:08 | MR ---
MR brain without contrast HISTORY: Dizziness, unsteady on feet Multiplanar multisequence imaging through the brain Correlation to CT brain dated 05/13/2014 There is no restricted diffusion. No hemorrhage or hydrocephalus. Probable age-related atrophy is not ed. There are normal vascular flow voids. Air-fluid level is present in the left maxillary sinus. Muc osal disease present in the frontal sinus, ethmoid air cells, maxillary sinuses. There is inflammator y change in the right mastoid air cells. Cerebellopontine angles, corpus callosum, pituitary, cervica l medullary junction are within normal limits. Scattered deep white matter hyperintensities are prese nt on inversion recovery T2-weighted sequences likely due to chronic small vessel ischemia. IMPRESSION: No acute abnormality. Age-related changes of atrophy and probable chronic small vessel is chemia. Correlate for left maxillary sinusitis. Additional findings above.
== END | disposition home or self-care (01) ==
LOC: RADMRIMAIN 08:43
PROVIDERS: ATTEND Family Medicine
DX: G31.1 Senile degeneration of brain, not elsewhere classified (principal)
CPT/HCPCS: 70551

== ENCOUNTER → 2018-11-23 | Outpatient (CLI) | payer MEDICARE, BC ==
[2018-11-23 08:52] LABS: Basophils # (A) 0.1 k/uL (0-0.2); Basophils % (A) 2 %; Eosinophils # (A) 0.3 k/uL (0-0.7); Eosinophils % (A) 7 %; HCT 40.4 % (34.0-46.0); HGB 13.2 gm/dL (11.4-16.0); Lymphocytes # (A) 1.9 k/uL (1.0-4.8); Lymphocytes % (A) 43 %; MCH 32.2 pg (25.0-35.0); MCHC 32.6 g/dL (31.0-37.0); MCV 98.8 fL (80.0-100.0); Mean Platelet Volume 8.9; Monocytes # (A) 0.2 k/uL (0-1.0); Monocytes % (A) 4 %; Neutrophils # (A) 1.8 k/uL (1.3-7.7); Neutrophils % (A) 41 %; Platelet Count 157 k/uL (150-450); RBC 4.09 m/uL (3.80-5.40); RDW 14.1 % (11.5-15.5); WBC 4.4 k/uL (3.8-10.6)
[2018-11-23 09:46] LABS: Appearance,Urine Clear (Clear); Bacteria,Urine Occasional /hpf; Bilirubin,Urine Negative (Negative); Blood,Urine Negative (Negative); Color,Urine Light Yellow; Glucose,Urine (UA) Negative (Negative); Ketones,Urine Negative (Negative); Leukocyte Esterase,Urine Trace (Negative); Mucus,Urine Rare /hpf; Nitrite,Urine Negative (Negative); PH, Urine 6.5 (5.0-8.0); Protein,Urine Negative (Negative); RBC,Urine 1 /hpf (0-5); Specific Gravity,Urine 1.011 (1.001-1.035); Squamous Epithelial Cell,Urine 3 /hpf (0-4); Urobilinogen,Urine <2.0 mg/dL (<2.0); WBC,Urine 2 /hpf (0-5)
[2018-11-23 16:11] LABS: Iron Saturation 33.21 (12.00-45.00)
[2018-11-23 16:20] LABS: Vitamin D 25 Hydroxy 31.6 ng/mL (30.0-100.0)
[2018-11-23 16:25] LABS: African American GFR (CKD) 72.5 (60.0-200.0); Anion Gap 5.3 mmol/L (4.00-12.00); BUN/Creat Ratio 17.78 Ratio (12.00-20.00); Calcium 9.5 mg/dL (8.7-10.3); Carbon Dioxide 25.7 mmol/L (21.6-31.8); Magnesium 1.9 mg/dL (1.5-2.4); Phosphorus 4.5 mg/dL (2.4-5.1); Potassium 4.4 mmol/L (3.5-5.5); Uric Acid 3.6 mg/dL (2.9-7.7)
== END | disposition home or self-care (01) ==
LOC: LABWHC1 08:14
PROVIDERS: ATTEND Internal Medicine Nephrology
DX: M10.9 Gout, unspecified (principal); N39.0 Urinary tract infection, site not specified; N18.3 Chronic kidney disease, stage 3 (moderate); D63.1 Anemia in chronic kidney disease; E55.9 Vitamin D deficiency, unspecified
CPT/HCPCS: 36415; 80048; 81001; 82306; 82728; 83540; 83550; 83735; 83970; 84100; 84550; 85025

== ENCOUNTER → 2019-06-28 | Outpatient (CLI) | payer MEDICARE, BC ==
[2019-06-28 17:44] LABS: Appearance,Urine Clear (Clear); Bilirubin,Urine Negative (Negative); Blood,Urine Negative (Negative); Color,Urine Light Yellow; Glucose,Urine (UA) Negative (Negative); Ketones,Urine Negative (Negative); Leukocyte Esterase,Urine Negative (Negative); Nitrite,Urine Negative (Negative); Protein,Urine Negative (Negative); Specific Gravity,Urine 1.005 (1.001-1.035); Urobilinogen,Urine <2.0 mg/dL (<2.0)
[2019-06-28 17:48] LABS: Calcium 9.9 mg/dL (8.4-10.2); Magnesium 2.3 mg/dL (1.6-2.3); Potassium 4.4 mmol/L (3.5-5.1); Uric Acid 4.1 mg/dL (3.7-7.4)
[2019-06-28 18:20] LABS: Basophils # (A) 0.1 k/uL (0-0.2); Basophils % (A) 1 %; Eosinophils # (A) 0.2 k/uL (0-0.7); Eosinophils % (A) 3 %; HCT 40.6 % (34.0-46.0); HGB 13.5 gm/dL (11.4-16.0); Lymphocytes # (A) 2.3 k/uL (1.0-4.8); Lymphocytes % (A) 38 %; MCH 32.2 pg (25.0-35.0); MCHC 33.2 g/dL (31.0-37.0); MCV 96.9 fL (80.0-100.0); Mean Platelet Volume 9.4; Monocytes # (A) 0.3 k/uL (0-1.0); Monocytes % (A) 5 %; Neutrophils % (A) 51 %; Platelet Count 167 k/uL (150-450); RBC 4.18 m/uL (3.80-5.40); RDW 12.7 % (11.5-15.5); WBC 5.9 k/uL (3.8-10.6)
--- NOTE | 2019-06-29 10:37 | MM ---
Reason for exam: screening (asymptomatic). Last mammogram was performed 1 year and 1 month ago. History: Patient is postmenopausal. Physical Findings: A clinical breast exam by your physician is recommended on an annual basis and results should be correlated with mammographic findings. MG 3D Screening Mammo W/Cad Bilateral CC and MLO view(s) were taken. Prior study comparison: June 04, 2018, bilateral MG 3d screening mammo w/cad. June 03, 2017, bilateral MG 3d screening mammo w/cad. The breast tissue is heterogeneously dense. This may lower the sensitivity of mammography. There are benign appearing round linear dystrophic calcifications bilaterally. Asymmetric breast tissue right anterior medial inferior aspect. There is no discrete abnormality. ASSESSMENT: Benign, BI-RAD 2 RECOMMENDATION: Routine screening mammogram of both breasts in 1 year.
[2019-06-29 10:59] LABS: % Iron Saturation 41.94 (12.00-45.00)
[2019-06-29 11:08] LABS: Ferritin 139.7 ng/mL (10.0-291.0)
== END | disposition home or self-care (01) ==
LOC: RADMAMWWP 16:44
PROVIDERS: ATTEND Family Medicine
DX: Z12.31 Encounter for screening mammogram for malignant neoplasm of breast (principal); N18.3 Chronic kidney disease, stage 3 (moderate); N39.0 Urinary tract infection, site not specified; M10.9 Gout, unspecified; E21.3 Hyperparathyroidism, unspecified; E55.9 Vitamin D deficiency, unspecified; D63.1 Anemia in chronic kidney disease
CPT/HCPCS: 36415; 77063; 77067; 80048; 81003; 82306; 82728; 83540; 83550; 83735; 83970; 84100; 84550; 85025

== ENCOUNTER → 2019-09-29 | Outpatient (CLI) | payer MEDICARE, BC ==
--- NOTE | 2019-09-29 15:36 | US ---
EXAMINATION TYPE: US kidneys/renal and bladder DATE OF EXAM: 09/29/2019 COMPARISON: CLINICAL HISTORY: N18.3 CKD Stage 3. Right kidney removed x 3 years ago. EXAM MEASUREMENTS: Left Kidney: 11.5 x 4.9 x 5.5 cm Right Kidney: Surgically absent Left Kidney: Mild hydronephrosis. Upper pole echogenic focus- 0.8 x 0.8 cm Bladder: Distended, anechoic Left jet seen IMPRESSION: Mild left hydronephrosis with an 8 mm upper pole calculus.
== END | disposition home or self-care (01) ==
LOC: RADUSWWP 14:57
PROVIDERS: ATTEND Nurse Practitioner Family
DX: N18.3 Chronic kidney disease, stage 3 (moderate) (principal); N13.2 Hydronephrosis with renal and ureteral calculous obstruction
CPT/HCPCS: 76770

== ENCOUNTER → 2020-01-19 | Outpatient (CLI) | payer MEDICARE, BC ==
[2020-01-19 11:54] LABS: HCT 38.8 % (34.0-46.0); HGB 12.7 gm/dL (11.4-16.0); MCH 32.3 pg (25.0-35.0); MCHC 32.6 g/dL (31.0-37.0); Mean Platelet Volume 9.6; Platelet Count 144 k/uL (150-450); RBC 3.92 m/uL (3.80-5.40); RDW 12.8 % (11.5-15.5); WBC 4.5 k/uL (3.8-10.6)
[2020-01-19 11:57] LABS: Appearance,Urine Clear (Clear); Bilirubin,Urine Negative (Negative); Blood,Urine Negative (Negative); Color,Urine Light Yellow; Glucose,Urine (UA) Negative (Negative); Ketones,Urine Negative (Negative); Leukocyte Esterase,Urine Negative (Negative); Nitrite,Urine Negative (Negative); Protein,Urine Negative (Negative); Specific Gravity,Urine 1.005 (1.001-1.035); Urobilinogen,Urine <2.0 mg/dL (<2.0)
[2020-01-19 22:36] LABS: % Iron Saturation 32.37 (12.00-45.00); African American GFR (CKD) 63.4 (60.0-200.0); Albumin 4.1 g/dL (3.80-4.90); Albumin/Globulin Ratio 2.28 (1.60-3.17); Anion Gap 10.4 mmol/L (4.00-12.00); Calcium 9.6 mg/dL (8.7-10.3); Carbon Dioxide 22.6 mmol/L (21.6-31.8); Globulin 1.8 g/dL (1.6-3.3); Magnesium 2.1 mg/dL (1.5-2.4); Non-African American GFR(CKD) 54.7 (60.0-200.0); Phosphorus 4.5 mg/dL (2.4-5.1); Potassium 4.6 mmol/L (3.5-5.5); Total Bilirubin 0.9 mg/dL (0.2-1.2); Total Protein 5.9 g/dL (6.2-8.2); Uric Acid 3.8 mg/dL (2.9-7.7)
[2020-01-19 22:43] LABS: Ferritin 170.1 ng/mL (10.0-291.0)
== END | disposition home or self-care (01) ==
LOC: LABWHC1 09:21
PROVIDERS: ATTEND Nurse Practitioner Family
DX: N18.3 Chronic kidney disease, stage 3 (moderate) (principal); D63.1 Anemia in chronic kidney disease; N39.0 Urinary tract infection, site not specified; E21.3 Hyperparathyroidism, unspecified; E55.9 Vitamin D deficiency, unspecified; M10.9 Gout, unspecified
CPT/HCPCS: 36415; 80053; 81003; 82306; 82728; 83540; 83550; 83735; 83970; 84100; 84550; 85027

== ENCOUNTER → 2020-07-11 | Outpatient (CLI) | payer MEDICARE, BC ==
[2020-07-11 09:38] LABS: Appearance,Urine Cloudy (Clear); Bacteria,Urine Occasional /hpf; Bilirubin,Urine Negative (Negative); Blood,Urine Negative (Negative); Color,Urine Yellow; Glucose,Urine (UA) Negative (Negative); Ketones,Urine Negative (Negative); Leukocyte Esterase,Urine Negative (Negative); Mucus,Urine Rare /hpf; Nitrite,Urine Negative (Negative); PH, Urine 6.5 (5.0-8.0); Protein,Urine Negative (Negative); RBC,Urine 6 /hpf (0-5); Specific Gravity,Urine 1.013 (1.001-1.035); Squamous Epithelial Cell,Urine 1 /hpf (0-4); Urobilinogen,Urine <2.0 mg/dL (<2.0); WBC,Urine 2 /hpf (0-5)
[2020-07-11 09:46] LABS: Creatinine,Urine Random 73.4 mg/dL; Protein/Creatinine Ratio,Urine 0.204
[2020-07-11 15:12] LABS: Basophils # (A) 0.07 X 10*3/uL (0.00-0.10); Basophils % (A) 1.6 %; Eosinophils # (A) 0.23 X 10*3/uL (0.04-0.35); Eosinophils % (A) 5.2 %; HCT 40.8 % (37.2-46.3); HGB 13.2 g/dL (12.0-15.0); Lymphocytes # (A) 2.01 X 10*3/uL (0.90-5.00); Lymphocytes % (A) 45.3 %; MCH 31.7 pg (27.0-32.0); MCHC 32.4 g/dL (32.0-37.0); MCV 97.8 fL (80.0-97.0); Mean Platelet Volume 11.8 fL (9.5-12.2); Monocytes # (A) 0.38 X 10*3/uL (0.20-1.00); Monocytes % (A) 8.6 %; Neutrophils # (A) 1.75 X 10*3/uL (1.80-7.70); Neutrophils % (A) 39.3 %; Platelet Count 177 X 10*3/uL (140-440); RBC 4.17 X 10*6/uL (4.10-5.20); WBC 4.44 X 10*3/uL (4.50-10.00)
[2020-07-11 16:27] LABS: % Iron Saturation 27.87 (12.00-45.00); Albumin 4.3 g/dL (3.80-4.90); Anion Gap 8.7 mmol/L (4.00-12.00); BUN/Creat Ratio 24.44 Ratio (12.00-20.00); Carbon Dioxide 24.3 mmol/L (21.6-31.8); Magnesium 2.2 mg/dL (1.5-2.4); Non-African American GFR(CKD) 62.1 (60.0-200.0); Phosphorus 3.9 mg/dL (2.4-5.1); Potassium 4.4 mmol/L (3.5-5.5); Uric Acid 4.2 mg/dL (2.9-7.7)
[2020-07-11 16:35] LABS: Ferritin 149.3 ng/mL (10.0-291.0)
== END | disposition home or self-care (01) ==
LOC: LABWHC1 08:46
PROVIDERS: ATTEND Internal Medicine Nephrology
DX: N18.30 Chronic kidney disease, stage 3 unspecified (principal); E55.9 Vitamin D deficiency, unspecified; D64.9 Anemia, unspecified; N25.81 Secondary hyperparathyroidism of renal origin; N39.0 Urinary tract infection, site not specified; R80.9 Proteinuria, unspecified; M10.9 Gout, unspecified
CPT/HCPCS: 36415; 80048; 81001; 82040; 82306; 82570; 82728; 83540; 83550; 83735; 83970; 84100; 84156; 84550; 85025

== ENCOUNTER → 2020-08-21 | Outpatient (CLI) | payer MEDICARE, BC ==
--- NOTE | 2020-08-22 12:03 | MM ---
Reason for exam: screening (asymptomatic). Last mammogram was performed 1 year and 2 months ago. History: Patient is postmenopausal. Physical Findings: A clinical breast exam by your physician is recommended on an annual basis and results should be correlated with mammographic findings. MG 3D Screening Mammo W/Cad Bilateral CC and MLO view(s) were taken. Prior study comparison: June 28, 2019, bilateral MG 3d screening mammo w/cad. June 04, 2018, bilateral MG 3d screening mammo w/cad. The breast tissue is heterogeneously dense. This may lower the sensitivity of mammography. Finding: There are typically benign round, diffuse/scattered, grouped, course calcifications in the right breast. No significant changes in finding since June 28, 2019 and June 04, 2018. ASSESSMENT: Benign, BI-RAD 2 RECOMMENDATION: Routine screening mammogram of both breasts in 1 year.
== END | disposition home or self-care (01) ==
LOC: RADMAMWWP 10:51
PROVIDERS: ATTEND Family Medicine
DX: Z12.31 Encounter for screening mammogram for malignant neoplasm of breast (principal); Z78.0 Asymptomatic menopausal state
CPT/HCPCS: 77063; 77067

== ENCOUNTER → 2021-01-09 | Outpatient (CLI) | payer MEDICARE, BC ==
--- NOTE | 2021-01-09 14:40 | US ---
EXAMINATION TYPE: US kidneys/renal and bladder DATE OF EXAM: 01/09/2021 COMPARISON: 09/29/19 US CLINICAL HISTORY: E55.9 Vitamin D deficiency; N18.3 CKD stage III. Right kidney removed EXAM MEASUREMENTS: Right Kidney: Surgically absent cm Left Kidney: 12.9x5.5x4.1 cm Right Kidney: Surgically absent Left Kidney: Left renal stone superior pole 1.0cm Bladder: wnl Bilateral Jets seen: Left jet seen IMPRESSION: 1. Left renal calcification superior pole without obstruction. 2. Right kidney is absent. No recurrent masses in the right renal bed
== END | disposition home or self-care (01) ==
LOC: RADUSWWP 10:42
PROVIDERS: ATTEND Internal Medicine Nephrology
DX: N18.30 Chronic kidney disease, stage 3 unspecified (principal); N28.89 Other specified disorders of kidney and ureter; Z90.5 Acquired absence of kidney
CPT/HCPCS: 76770

== ENCOUNTER 2022-04-18 22:19 | Emergency (ER) | payer MEDICARE, BC ==
[2022-04-18 22:25] VITALS: TEMP 98
[2022-04-18] MEDS ORDERED: FAMOTIDINE 20 MG/2 ML VIAL IV STA (22:38)
[2022-04-18] MEDS ORDERED: methylPREDNISolone SOD SUCCI 125 MG/2 ML VIAL IV STA (22:38)
[2022-04-18 22:39] VITALS: RESP 20
--- NOTE | 2022-04-18 23:31 | ED ---
General Adult HPI - General Chief complaint: Allergic Reaction Stated complaint: REBEKAH Time Seen by Provider: 04/18/22 22:33 Source: patient Mode of arrival: ambulatory Limitations: no limitations - History of Present Illness Initial comments: This patient is a 76-year-old woman who states she has history of angioedema and feels she is having a recurrence. She states that she was watching television approximate 45 minutes after eating when she noticed that it felt like there was swelling in her throat. He took Benadryl but the symptoms continued. She took additional bilateral states she is up to 100 mg now. When there was no relief she came to be seen here. She has not had dyspnea. No coughing. She states it mainly feels like there is a lump in her throat. No rash, vomiting, diarrhea. No pain. -: hour(s) Location: mouth Severity scale (1-10): 0 Consistency: constant Improves with: none Worsens with: none Associated Symptoms: denies other symptoms Treatments Prior to Arrival: other (Benadryl) - Related Data Home Medications Medication Instructions Recorded Confirmed Multivitamins, Thera [Multivitamin 1 tab PO DAILY 05/13/14 06/16/16 (formulary)] Cholecalciferol [Vitamin D3 (25 2,000 unit PO DAILY 05/28/15 06/16/16 Mcg = 1000 Iu)] Cyanocobalamin [Vitamin B-12] 500 mcg PO DAILY 05/28/15 06/16/16 Meclizine [Antivert] 25 mg PO TID PRN 05/30/15 06/16/16 Magnesium 400 mg PO DAILY 10/02/15 06/16/16 Acetaminophen Tab [Tylenol Tab] 1,000 mg PO BID PRN 06/16/16 06/16/16 diphenhydrAMINE [Benadryl] 75 mg PO BID PRN 06/16/16 06/16/16 Previous Rx's Medication Instructions Recorded Famotidine [Pepcid] 20 mg PO BID #20 tablet 06/16/16 diphenhydrAMINE [Benadryl] 50 mg PO QID PRN #20 capsule 06/16/16 methylPREDNISolone Dose Pack 4 mg PO DIRECTED #21 package 06/16/16 [Medrol Dose Pack] Allergies Allergy/AdvReac Type Severity Reaction Status Date / Time cat dander Allergy Unknown Verified 06/30/18 23:50 [place] And Derivatives Allergy Rash/Hives Verified 04/18/22 22:25 [[place]] dog dander Allergy Unknown Verified 06/30/18 23:50 Iodinated Contrast Media Allergy Unknown Verified 06/30/18 23:50 [Iodinated Contrast Media - IV Dye] iodine Allergy Unknown Verified 06/30/18 23:50 mold Allergy Unknown Verified 06/30/18 23:50 ragweed pollen Allergy Unknown Verified 06/30/18 23:50 trees Allergy Unknown Uncoded 06/30/18 23:50 Review of Systems ROS Statement: Those systems with pertinent positive or pertinent negative responses have been documented in the HPI. ROS Other: All systems not noted in ROS Statement are negative. Constitutional: Denies: fever, chills ENT: Reports: other (Throat swelling) Respiratory: Denies: cough, dyspnea Cardiovascular: Denies: chest pain, palpitations Gastrointestinal: Denies: abdominal pain, vomiting, diarrhea Genitourinary: Denies: dysuria, hematuria Musculoskeletal: Denies: back pain Skin: Denies: rash Neurological: Denies: headache, weakness, numbness Past Medical History Past Medical History: GERD/Reflux, Osteoarthritis (OA) Additional Past Medical History / Comment(s): Chronic SIMEON. OCC DIZZYNESS. OCC GERD. VARICOSE VEINS. HEMATURIA. History of Any Multi-Drug Resistant Organisms: None Reported Past Surgical History: Adenoidectomy, Appendectomy, Section, Joint Replacement, Orthopedic Surgery, Tonsillectomy Additional Past Surgical History / Comment(s): Bret Knee Replacement; RT Wrist surgery Past Anesthesia/Blood Transfusion Reactions: Motion Sickness Additional Past Anesthesia/Blood Transfusion Reaction / Comment(s): ONLY HX OF NV W/ ETHER YEARS AGO. Past Psychological History: No Psychological Hx Reported Past Alcohol Use History: Occasional Past Drug Use History: None Reported - Past Family History Mother Family Medical History: Cancer Additional Family Medical History / Comment(s): lung cancer General Exam Limitations: no limitations General appearance: alert, in no apparent distress Head exam: Present: atraumatic, normocephalic Eye exam: Present: normal appearance. Absent: scleral icterus, conjunctival injection ENT exam: Present: other Neck exam: Present: normal inspection, full ROM. Absent: lymphadenopathy Respiratory exam: Present: normal lung sounds bilaterally. Absent: respiratory distress, wheezes, rales, rhonchi, stridor Cardiovascular Exam: Present: regular rate, normal rhythm, normal heart sounds. Absent: systolic murmur, diastolic murmur, rubs, gallop GI/Abdominal exam: Present: soft. Absent: distended, tenderness, guarding, rebound, rigid, mass Extremities exam: Present: normal inspection, normal capillary refill. Absent: pedal edema, calf tenderness Back exam: Present: normal inspection. Absent: CVA tenderness (R), CVA t enderness (L) Neurological exam: Present: alert Skin exam: Present: warm, dry, intact, normal color. Absent: rash Course Vital Signs 04/18/22 04/18/22 22:21 22:36 Temperature 98 F Pulse Rate 86 Respiratory 16 20 Rate Blood Pressure 190/81 O2 Sat by Pulse 98 Oximetry Medical Decision Making - Medical Decision Making This patient is 76-year-old woman with history of angioedema who presents with a flareup of her usual angioedema symptoms. She has noted improvement since medication here and would like to go home. I did explain that her usual practices to observe longer but she states she's had this in number times and feels confident things are improving. She'll return if there is no further improvement or if there is any worsening in anyway. She does have a steroid taper at home that she is going to start. Disposition Clinical Impression: Angioedema Disposition: HOME SELF-CARE Condition: Good Instructions (If sedation given, give patient instructions): Angioedema (ED) Is patient prescribed a controlled substance at d/c from ED?: No Referrals: Lizzy Gloria III, MD [Primary Care Provider] - 1-2 days
[2022-04-19 00:26] VITALS: BP 158/70; PULSE 74
== END 2022-04-19 00:15 | disposition home or self-care (01) ==
LOC: EC 22:19
DX: T78.3XXA Angioneurotic edema, initial encounter (principal); K21.9 Gastro-esophageal reflux disease without esophagitis; M19.90 Unspecified osteoarthritis, unspecified site; Z91.048 Other nonmedicinal substance allergy status
CPT/HCPCS: 99284; 96374; 96375; J2930

== ENCOUNTER 2022-04-23 01:17 | Emergency (ER) | payer MEDICARE, BC ==
[2022-04-23] MEDS ORDERED: methylPREDNISolone SOD SUCCI 125 MG/2 ML VIAL IV STA (01:38)
[2022-04-23] MEDS ORDERED: FAMOTIDINE 20 MG/2 ML VIAL IV STA (01:38)
[2022-04-23] MEDS ORDERED: diphenhydrAMINE 50 MG/ML 1 ML VIAL IVP STA (01:38)
--- NOTE | 2022-04-23 01:43 | ED ---
General Adult HPI - General Chief complaint: Allergic Reaction Stated complaint: Tongue swollen Time Seen by Provider: 04/23/22 01:27 Source: patient, RN notes reviewed Mode of arrival: ambulatory Limitations: no limitations - History of Present Illness Initial comments: 76-year-old female presents to the emergency department for evaluation of tongue swelling. Patient states she has a history of angioedema and has no idea what her triggers are. States she was seen on the for the same complaint. Was given Benadryl, Pepcid, and Solu-Medrol at that time. States symptoms resolved and she was discharged home. States when the swelling began tonight she did take Benadryl and has had some improvement. States she has an EpiPen at home but does not use it as she is not having any difficulty breathing, wheezing, or tightness in her chest. Denies fever, chills, difficulty swallowing, difficulty breathing, nausea, vomiting, or diarrhea. - Related Data Home Medications Medication Instructions Recorded Confirmed Multivitamins, Thera [Multivitamin 1 tab PO DAILY 05/13/14 06/16/16 (formulary)] Cholecalciferol [Vitamin D3 (25 2,000 unit PO DAILY 05/28/15 06/16/16 Mcg = 1000 Iu)] Cyanocobalamin [Vitamin B-12] 500 mcg PO DAILY 05/28/15 06/16/16 Meclizine [Antivert] 25 mg PO TID PRN 05/30/15 06/16/16 Magnesium 400 mg PO DAILY 10/02/15 06/16/16 Acetaminophen Tab [Tylenol Tab] 1,000 mg PO BID PRN 06/16/16 06/16/16 diphenhydrAMINE [Benadryl] 75 mg PO BID PRN 06/16/16 06/16/16 Previous Rx's Medication Instructions Recorded Famotidine [Pepcid] 20 mg PO BID #20 tablet 06/16/16 diphenhydrAMINE [Benadryl] 50 mg PO QID PRN #20 capsule 06/16/16 methylPREDNISolone Dose Pack 4 mg PO DIRECTED #21 package 06/16/16 [Medrol Dose Pack] Allergies Allergy/AdvReac Type Severity Reaction Status Date / Time cat dander Allergy Unknown Verified 04/23/22 01:21 [place] And Derivatives Allergy Rash/Hives Verified 04/23/22 01:21 [[place]] dog dander Allergy Unknown Verified 04/23/22 01:21 Iodinated Contrast Media Allergy Unknown Verified 04/23/22 01:21 [Iodinated Contrast Media - IV Dye] iodine Allergy Unknown Verified 04/23/22 01:21 mold Allergy Unknown Verified 04/23/22 01:21 ragweed pollen Allergy Unknown Verified 04/23/22 01:21 trees Allergy Unknown Uncoded 04/23/22 01:21 Review of Systems ROS Statement: Those systems with pertinent positive or pertinent negative responses have been documented in the HPI. ROS Other: All systems not noted in ROS Statement are negative. Past Medical History Past Medical History: GERD/Reflux, Osteoarthritis (OA) Additional Past Medical History / Comment(s): Chronic SIMEON. OCC DIZZYNESS. OCC GERD. VARICOSE VEINS. HEMATURIA. History of Any Multi-Drug Resistant Organisms: None Reported Past Surgical History: Adenoidectomy, Appendectomy, Section, Joint Replacement, Orthopedic Surgery, Tonsillectomy Additional Past Surgical History / Comment(s): Bret Knee Replacement; RT Wrist surgery Past Anesthesia/Blood Transfusion Reactions: Motion Sickness Additional Past Anesthesia/Blood Transfusion Reaction / Comment(s): ONLY HX OF NV W/ ETHER YEARS AGO. Past Psychological History: No Psychological Hx Reported Smoking Status: Current every day smoker Past Alcohol Use History: Occasional Past Drug Use History: None Reported - Past Family History Mother Family Medical History: Cancer Additional Family Medical History / Comment(s): lung cancer General Exam Limitations: no limitations General appearance: alert, in no apparent distress Eye exam: Present: normal appearance. Absent: scleral icterus, conjunctival injection Expanded Mouth exam: Present: normal external inspection, other (No swelling of the lips.). Absent: tongue normal (Swelling along the left lateral aspect of the tongue extending toward the midline.) Throat exam: normal inspection, other (No edema and the posterior pharynx) Neck exam: Present: normal inspection, full ROM. Absent: tenderness, meningismus, lymphadenopathy Respiratory exam: Present: normal lung sounds bilaterally. Absent: respiratory distress, wheezes, rales, rhonchi, stridor Cardiovascular Exam: Present: regular rate, normal rhythm, normal heart sounds. Absent: systolic murmur, diastolic murmur, rubs, gallop, clicks GI/Abdominal exam: Present: soft, normal bowel sounds. Absent: distended, tend erness, guarding, rebound, rigid Neurological exam: Present: alert, oriented X3, normal gait Psychiatric exam: Present: normal affect, normal mood Skin exam: Present: warm, dry, intact, normal color. Absent: rash Course Vital Signs 04/23/22 04/23/22 04/23/22 01:22 01:29 02:56 Temperature 97.9 F 98 F Pulse Rate 112 H 82 81 Respiratory 18 18 16 Rate Blood Pressure 103/74 110/68 110/58 O2 Sat by Pulse 98 98 99 Oximetry - Reevaluation(s) Reevaluation #1: 04/23/22 02:23 Upon reassessment, patient reports improvement. Physical exam findings reveal decrease swelling of the left lateral edge of the tongue. Continues to rest comfortably. No wheezing, shortness of breath, difficulty breathing, or difficulty swallowing. Patient is anxious for discharge. Explained that it is recommended to observe for 4-6 hours after medications, which patient declines. Discussed reassessment in 20-30 minutes with intent discharge at that time. She verbalizes understanding and agrees with this plan. Medical Decision Making - Medical Decision Making This is a pleasant 76-year-old female with a past medical history of recurrent angioedema who presents to the emergency Department with complaints of tongue swelling. Upon exam, patient is noted to have thickened appearance to the lateral aspect of the tongue that spreads toward the midline. She has not exper ienced any shortness of breath, wheezing, tightness in her chest, or urticaria rash. Triggering allergen is unknown. Patient was given Benadryl, Solu-Medrol, and Pepcid via IV with improvement. She was monitored for an hour, but declined to stay further. She is discharged home to follow-up with her PCP in to continue taking her steroid Dosepak. Return parameters were discussed in detail. Patient verbalizes understanding and agrees with this plan. Attending: Todd. Disposition Clinical Impression: Angioedema of tongue Disposition: HOME SELF-CARE Condition: Stable Instructions (If sedation given, give patient instructions): Angioedema (ED) Additional Instructions: Continue taking your home medications as prescribed. Again take Benadryl if needed for any oral swelling. Follow-up with your PCP for a recheck in 24 hours. Call 911 if you develop any difficulty breathing, difficulty swallowing, wheezing, or tightness in your chest. Return to the emergency department with any new, worsening, or concerning symptoms. Is patient prescribed a controlled substance at d/c from ED?: No Referrals: Lizzy Gloria III, MD [Primary Care Provider] - 1-2 days Time of Disposition: 02:54
[2022-04-23 03:00] VITALS: BP 110/58; PULSE 81; RESP 16; TEMP 98
== END 2022-04-23 02:56 | disposition home or self-care (01) ==
LOC: EC 01:17
DX: T78.3XXA Angioneurotic edema, initial encounter (principal); M19.90 Unspecified osteoarthritis, unspecified site; F17.200 Nicotine dependence, unspecified, uncomplicated; Z79.1 Long term (current) use of non-steroidal anti-inflammatories (NSAID); Z91.041 Radiographic dye allergy status; Z91.018 Allergy to other foods; Z88.8 Allergy status to other drugs, medicaments and biological substances
CPT/HCPCS: 99283; 96374; 96375 ×2; J1200; J2930

== ENCOUNTER → 2023-02-28 | Outpatient (CLI) | payer MEDICARE, BC ==
[2023-02-28 11:37] LABS: Creatinine,Urine Random 58.8 mg/dL; Protein/Creatinine Ratio,Urine 0.17
[2023-02-28 15:58] LABS: Basophils # (A) 0.07 X 10*3/uL (0.00-0.10); Basophils % (A) 1.9 %; Eosinophils # (A) 0.18 X 10*3/uL (0.04-0.35); Eosinophils % (A) 4.8 %; HCT 37.4 % (37.2-46.3); HGB 12.7 g/dL (12.0-15.0); Lymphocytes # (A) 1.52 X 10*3/uL (0.90-5.00); Lymphocytes % (A) 40.3 %; MCH 32.4 pg (27.0-32.0); MCV 95.4 FL (80.0-97.0); Mean Platelet Volume 11.7 FL (9.5-12.2); Monocytes # (A) 0.36 X 10*3/uL (0.20-1.00); Monocytes % (A) 9.5 %; NRBC Per 100 WBC 0 X 10*3/uL (0.00-0.01); Neutrophils # (A) 1.63 X 10*3/uL (1.80-7.70); Neutrophils % (A) 43.2 %; Platelet Count 161 X 10*3/uL (140-440); RBC 3.92 X 10*6/uL (4.10-5.20); RDW 12.7 % (11.5-14.5); WBC 3.77 X 10*3/uL (4.50-10.00)
[2023-02-28 16:21] LABS: % Iron Saturation 37.11 (12.00-45.00); Albumin 4.2 g/dL (3.8-4.9); BUN/Creat Ratio 10.27 Ratio (12.00-20.00); Blood Urea Nitrogen 11.3 mg/dL (9.0-27.0); Carbon Dioxide 26.3 mmol/L (21.6-31.8); Chloride 108 mmol/L (96-109); Glucose 88 mg/dL (70-110); Iron 108 UG/DL (50-170); Magnesium 2.2 mg/dL (1.5-2.4); Phosphorus 3.9 mg/dL (2.4-5.1); Potassium 4.1 mmol/L (3.5-5.5); Sodium 145 mmol/L (135-145); Total Iron Binding Capacity 291 UG/DL (228-460); Uric Acid 3.8 mg/dL (2.9-7.7)
[2023-02-28 16:38] LABS: Appearance,Urine Clear (Clear); Bilirubin,Urine Negative (Negative); Blood,Urine Large (Negative); Color,Urine Yellow (Yellow); Ketones,Urine Negative (Negative); Nitrite,Urine Negative (Negative); Specific Gravity,Urine 1.009 (1.001-1.030); Urobilinogen,Urine 0.2 E.U./DL
[2023-02-28 16:45] LABS: Bacteria,Urine None Seen (None Seen)
== END | disposition home or self-care (01) ==
LOC: LABWHC1 08:35
PROVIDERS: ATTEND Nurse Practitioner Family
DX: N18.30 Chronic kidney disease, stage 3 unspecified (principal); N25.81 Secondary hyperparathyroidism of renal origin; M10.9 Gout, unspecified; D63.1 Anemia in chronic kidney disease; N39.0 Urinary tract infection, site not specified; E55.9 Vitamin D deficiency, unspecified; R80.9 Proteinuria, unspecified
CPT/HCPCS: 36415; 80048; 81001; 82040; 82306; 82570; 82728; 83540; 83550; 83735; 83970; 84100; 84156; 84550; 85025

== ENCOUNTER → 2023-04-10 | Outpatient (CLI) | payer MEDICARE, BC ==
--- NOTE | 2023-04-10 15:26 | US ---
EXAMINATION TYPE: US kidneys/renal and bladder DATE OF EXAM: 04/10/2023 COMPARISON: 01/09/2021. CLINICAL INDICATION: Female, 77 years old with history of N18.30 CHRONIC KIDNEY DISEASE, STAGE 3 UNSP ECIFIED; EXAM MEASUREMENTS: Left Kidney: 13.2 x 5.6 x 5.9 cm Right Kidney: surgically absent Left Kidney: hydronephrosis, 0.5cm echogenic focus inferior pole Bladder: wnl Left Jet seen: yes There is no evidence for hydronephrosis at this point in time. No nephrolithiasis is seen. No cory s are identified. The urinary bladder is anechoic. Bilateral ureteral jets are seen. IMPRESSION: 1. Prior right nephrectomy. 2. Severe left-sided hydronephrosis. This is of indeterminate etiology based on this examination. 3. Possible stone in the left lower pole.
== END | disposition home or self-care (01) ==
LOC: RADUSWWP 12:16
PROVIDERS: ATTEND Internal Medicine Nephrology
DX: N18.30 Chronic kidney disease, stage 3 unspecified (principal); N13.30 Unspecified hydronephrosis; Z90.5 Acquired absence of kidney
CPT/HCPCS: 76770

== ENCOUNTER → 2023-04-24 | Outpatient (CLI) | payer MEDICARE, BC ==
--- NOTE | 2023-04-24 17:12 | CT ---
EXAMINATION TYPE: CT abdomen pelvis wo con DATE OF EXAM: 04/24/2023 HISTORY: hematuria. Unspecified hydronephrosis per order. CT DLP: 787 mGycm. Automated Exposure Control for Dose Reduction was Utilized. TECHNIQUE: CT scan of the abdomen and pelvis is performed without oral or IV contrast. COMPARISON: Prior CT 2016. Most recent ultrasound April 10, 2023 FINDINGS: Within the limitations of a non-contrast study, the following observations are made. LUNG BASES: Stable asymmetric prominent tissue medial inferior right breast axial image 2. Coronary a rtery calcification and/or stents are redemonstrated and more prominent. LIVER/GB: Gallbladder has some distended margins with suggestion of mild edematous wall thickening in feriorly. Acute cholecystitis cannot be excluded in appropriate clinical setting. Correlate clinicall y. PANCREAS: No significant abnormality is seen. SPLEEN: No significant abnormality is seen. ADRENALS: No significant abnormality is seen. KIDNEYS: Right kidney is surgically absent. Confirmation of 5 mm nonobstructing calculus lower pole l eft kidney coronal image 60. Confirmation of moderate to severe left-sided hydronephrosis due to 2 pr oximal left ureter calculi both measuring near 9 mm in size coronal image 50. BOWEL: [id number] diffuse colonic fecal prominence. No abnormal small or large bowel dilatation . GENITAL ORGANS: No gross abnormality seen. LYMPH NODES: No greater than 1cm abdominal or pelvic lymph nodes are appreciated. OSSEOUS STRUCTURES: Multilevel moderate to severe disc space narrowing and vacuum disc phenomenon in the lumbar spine. Mild to moderate chronic compression type fracture at T11 level with prominent Schm orl node along superior endplate is again seen. OTHER: Moderate to severe calcified plaque of the aorta extends into branch vessels. IMPRESSION: Confirmation of moderate to severe left-sided hydronephrosis due to 2 adjacent obstructin g 9 mm calculi in the proximal left ureter.
== END | disposition home or self-care (01) ==
LOC: RADCTMAIN 12:22
PROVIDERS: ATTEND Urology
DX: N13.2 Hydronephrosis with renal and ureteral calculous obstruction (principal)
CPT/HCPCS: 74176

== ENCOUNTER → 2023-04-25 | Outpatient (CLI) | payer MEDICARE, BC ==
[2023-04-25 16:22] LABS: HCT 40.9 % (37.2-46.3); HGB 13.1 g/dL (12.0-15.0); MCH 31.9 pg (27.0-32.0); MCV 99.5 FL (80.0-97.0); Mean Platelet Volume 11.3 FL (9.5-12.2); NRBC Per 100 WBC 0 X 10*3/uL (0.00-0.01); Platelet Count 204 X 10*3/uL (140-440); RBC 4.11 X 10*6/uL (4.10-5.20); RDW 13.3 % (11.5-14.5); WBC 5.24 X 10*3/uL (4.50-10.00)
[2023-04-25 16:36] LABS: BUN/Creat Ratio 10.44 Ratio (12.00-20.00); Blood Urea Nitrogen 9.4 mg/dL (9.0-27.0); Calcium 9.8 mg/dL (8.7-10.3); Carbon Dioxide 21.5 mmol/L (21.6-31.8); Chloride 109 mmol/L (96-109); Glucose 84 mg/dL (70-110); Potassium 4.6 mmol/L (3.5-5.5); Sodium 144 mmol/L (135-145)
== END | disposition home or self-care (01) ==
LOC: LABPAT 08:14
PROVIDERS: ATTEND Urology
DX: Z01.812 Encounter for preprocedural laboratory examination (principal); N20.1 Calculus of ureter
CPT/HCPCS: 80048; 85027

== ENCOUNTER 2023-04-27 10:13 | Emergency (ER) | payer MEDICARE, BC ==
--- NOTE | 2023-04-27 10:23 | ED ---
General Adult HPI - General Stated complaint: Blood in urine Time Seen by Provider: 04/27/23 10:22 Source: patient, RN notes reviewed Mode of arrival: ambulatory Limitations: no limitations - History of Present Illness Initial comments: 77-year-old female presents emergency Department chief complaint of hematuria. Patient has been seen neurologist because she has 2 stones in her left ureter. Patient states that she just feels worse today and she was recommended she felt worse to come emergency department. Patient is scheduled for outpatient treatment. - Related Data Home Medications Medication Instructions Recorded Confirmed Multivitamins, Thera [Multivitamin 1 tab PO DAILY 05/13/14 06/16/16 (formulary)] Cholecalciferol [Vitamin D3 (25 2,000 unit PO DAILY 05/28/15 06/16/16 Mcg = 1000 Iu)] Cyanocobalamin [Vitamin B-12] 500 mcg PO DAILY 05/28/15 06/16/16 Meclizine [Antivert] 25 mg PO TID PRN 05/30/15 06/16/16 Magnesium 400 mg PO DAILY 10/02/15 06/16/16 Acetaminophen Tab [Tylenol Tab] 1,000 mg PO BID PRN 06/16/16 06/16/16 diphenhydrAMINE [Benadryl] 75 mg PO BID PRN 06/16/16 06/16/16 Previous Rx's Medication Instructions Recorded Famotidine [Pepcid] 20 mg PO BID #20 tablet 06/16/16 diphenhydrAMINE [Benadryl] 50 mg PO QID PRN #20 capsule 06/16/16 methylPREDNISolone Dose Pack 4 mg PO DIRECTED #21 package 06/16/16 [Medrol Dose Pack] Allergies Allergy/AdvReac Type Severity Reaction Status Date / Time cat dander Allergy Unknown Verified 04/27/23 10:52 [place] And Derivatives Allergy Rash/Hives Verified 04/27/23 10:52 [[place]] dog dander Allergy Unknown Verified 04/27/23 10:52 Iodinated Contrast Media Allergy Unknown Verified 04/27/23 10:52 [Iodinated Contrast Media - IV Dye] iodine Allergy Unknown Verified 04/27/23 10:52 mold Allergy Unknown Verified 04/27/23 10:52 ragweed pollen Allergy Unknown Verified 04/27/23 10:52 trees Allergy Unknown Uncoded 01/07/24 10:52 Review of Systems ROS Statement: Those systems with pertinent positive or pertinent negative responses have been documented in the HPI. ROS Other: All systems not noted in ROS Statement are negative. Past Medical History Past Medical History: GERD/Reflux, Osteoarthritis (OA) Additional Past Medical History / Comment(s): Chronic SIMEON. OCC DIZZYNESS. OCC GERD. VARICOSE VEINS. HEMATURIA. History of Any Multi-Drug Resistant Organisms: None Reported Past Surgical History: Adenoidectomy, Appendectomy, Section, Joint Replacement, Orthopedic Surgery, Tonsillectomy Additional Past Surgical History / Comment(s): Bret Knee Replacement; RT Wrist surgery Past Anesthesia/Blood Transfusion Reactions: Motion Sickness Additional Past Anesthesia/Blood Transfusion Reaction / Comment(s): ONLY HX OF NV W/ ETHER YEARS AGO. Past Psychological History: No Psychological Hx Reported Smoking Status: Current every day smoker Past Alcohol Use History: Occasional Past Drug Use History: None Reported - Past Family History Mother Family Medical History: Cancer Additional Family Medical History / Comment(s): lung cancer General Exam - General Exam Comments Initial Comments: Visual Physical Exam Vital signs reviewed General: Well-appearing, nontoxic, no acute distress. Head: Normocephalic, atraumatic Eyes: PERRLA, EOMI ENT: Airway patent Chest: Nonlabored breathing Skin: No visual rash, normal skin tone Neuro: Alert and oriented 3 Musculoskeletal: No gross abnormalities General appearance: alert, in no apparent distress Head exam: Present: atraumatic, normocephalic, normal inspection Neck exam: Present: normal inspection. Absent: tenderness, meningismus, lymphadenopathy Respiratory exam: Present: normal lung sounds bilaterally. Absent: respiratory distress, wheezes, rales, rhonchi, stridor Cardiovascular Exam: Present: regular rate, normal rhythm, normal heart sounds. Absent: systolic murmur, diastolic murmur, rubs, gallop, clicks GI/Abdominal exam: Present: soft, normal bowel sounds. Absent: distended, tenderness, guarding, rebound, rigid Back exam: Absent: CVA tenderness (R), CVA tenderness (L) Course Vital Signs 04/27/23 10:49 Temperature 97.9 F Pulse Rate 68 Respiratory 18 Rate Blood Pressure 161/83 O2 Sat by Pulse 99 Oximetry Medical Decision Making - Medical Decision Making I completed the quick note portion of this chart signed Fadi Randhawa PA-C Was pt. sent in by a medical professional or institution (LATASHA Kendrick, LOGGING ASSISTANT, urgent care, hospital, or shelter...) When possible be specific @ -No Did you speak to anyone other than the patient for history (EMS, parent, family, police, friend...)? What history was obtained from this source @ -No Did you review nursing and triage notes (agree or disagree)? Why? @ -I reviewed and agree with nursing and triage notes Were old charts reviewed (outside hosp., previous admission, EMS record, old EKG, old radiological studies, urgent care reports/EKG's, shelter records)? Report findings @ -Reviewed outpatient CT, urinalysis Differential Diagnosis (chest pain, altered mental status, abdominal pain women, abdominal pain men, vaginal bleeding, weakness, fever, dyspnea, syncope, headache, dizziness, GI bleed, back pain, seizure, CVA, palpatations, mental health, musculoskeletal)? @ -Differential Abdominal Pain Women: Appendicitis, Cholecystitis, diverticulosis, ischemic bowel, pancreatitis, hepatitis, UTI, gastroenteritis, AAA, incarcerated hernia, bowel obstruction, constipation, inflammatory bowel, hepatitis, peptic ulcer disease, splenic infarction, perforated viscus, vulvitis, ovarian torsion, PID, kidney stone, placenta abruption, this is not meant to be an all-inclusive liste EKG interpreted by me (3pts min.). @ -None X-rays interpreted by me (1pt min.). @ -None done CT interpreted by me (1pt min.). @ -None done U/S interpreted by me (1pt. min.). @ -None done What testing was considered but not performed or refused? (CT, X-rays, U/S, labs)? Why? @ -None What meds were considered but not given or refused? Why? @ -None Did you discuss the management of the patient with other professionals (professionals i.e. LATASHA Kendrick, LOGGING ASSISTANT, lab, RT, psych nurse, social service technician, blind slat stapling machine operator, teacher, mail officer, telephonic nurse case manager)? Give summary @ -No Was smoking cessation discussed for >3mins.? @ -No Was critical care preformed (if so, how long)? @ -No Were there social determinants of health that impacted care today? How? (Lynne elessness, low income, unemployed, alcoholism, drug addiction, transportation, low edu. Level, literacy, decrease access to med. care, senior living, rehab)? @ -No Was there de-escalation of care discussed even if they declined (Discuss DNR or withdrawal of care, Hospice)? DNR status @ -No What co-morbidities impacted this encounter? (DM, HTN, Smoking, COPD, CAD, Cancer, CVA, ARF, Chemo, Hep., AIDS, mental health diagnosis, sleep apnea, morbid obesity)? @ -Kidney stone Was patient admitted / discharged? Hospital course, mention meds given and route, prescriptions, significant lab abnormalities, going to OR and other pertinent info. @ -Discharge patient presented for hematuria she is currently asymptomatic she has hematuria more likely from recent CT showing evidence of kidney stone. Patient urologist does know about these findings and has appointment on for surgery. Undiagnosed new problem with uncertain prognosis? @ -No Drug Therapy requiring intensive monitoring for toxicity (Heparin, Nitro, Insulin, Cardizem)? @ -No Were any procedures done? @ -No Diagnosis/symptom? @ -Hematuria, kidney stone Acute, or Chronic, or Acute on Chronic? @ -Acute Uncomplicated (without systemic symptoms) or Complicated (systemic symptoms)? @ -[Uncomplicated Side effects of treatment? @ -No Exacerbation, Progression, or Severe Exacerbation? @ -No Poses a threat to life or bodily function? How? (Chest pain, USA, ID, pneumonia, PE, COPD, DKA, ARF, appy, cholecystitis, CVA, Diverticulitis, Homicidal, Suicidal, threat to staff... and all critical care pts) @ -No - Lab Data Result diagrams: 04/27/23 10:58 04/27/23 10:58 Lab Results 04/27/23 04/27/23 04/27/23 Range/Units 10:58 10:58 11:21 WBC 5.0 (3.8-10.6) k/uL RBC 4.13 (3.80-5.40) m/uL Hgb 13.4 (11.4-16.0) gm/dL Hct 40.4 (34.0-46.0) % MCV 97.7 (80.0-100.0) fL MCH 32.3 (25.0-35.0) pg MCHC 33.1 (31.0-37.0) g/dL RDW 12.6 (11.5-15.5) % Plt Count 177 (150-450) k/uL MPV 9.0 Neutrophils % 55 % Lymphocytes % 33 % Monocytes % 5 % Eosinophils % 3 % Basophils % 1 % Neutrophils # 2.8 (1.3-7.7) k/uL Lymphocytes # 1.7 (1.0-4.8) k/uL Monocytes # 0.3 (0-1.0) k/uL Eosinophils # 0.2 (0-0.7) k/uL Basophils # 0.0 (0-0.2) k/uL Sodium 143 (137-145) mmol/L Potassium 4.2 (3.5-5.1) mmol/L Chloride 111 H (98-107) mmol/L Carbon Dioxide 24 (22-30) mmol/L Anion Gap 8 mmol/L BUN 10 (7-17) mg/dL Creatinine 0.86 (0.52-1.04) mg/dL Est GFR (CKD-EPI)AfAm 75 (>60 ml/min/1.73 sqM) Est GFR (CKD-EPI)NonAf 65 (>60 ml/min/1.73 sqM) Glucose 87 (74-99) mg/dL Calcium 9.6 (8.4-10.2) mg/dL Total Bilirubin 0.8 (0.2-1.3) mg/dL AST 23 (14-36) U/L ALT 12 (4-34) U/L Alkaline Phosphatase 72 (38-126) U/L Total Protein 7.0 (6.3-8.2) g/dL Albumin 4.2 (3.5-5.0) g/dL Urine Color Light Red Urine Appearance Cloudy H (Clear) Urine pH 6.0 (5.0-8.0) Ur Specific [place] 1.015 (1.001-1.035) Urine Protein 1+ H (Negative) Urine Glucose (UA) Negative (Negative) Urine Ketones Negative (Negative) Urine Blood Large H (Negative) Urine Nitrite Negative (Negative) Urine Bilirubin Negative (Negative) Urine Urobilinogen <2.0 (<2.0) mg/dL Ur Leukocyte Esterase Small H (Negative) Urine RBC >182 H (0-5) /hpf Urine WBC 16 H (0-5) /hpf Ur Squamous Epith Cells 4 (0-4) /hpf Urine Mucus Few H (None) /hpf Disposition Clinical Impression: Hematuria, Kidney stone on left side Disposition: HOME SELF-CARE Condition: Stable Instructions (If sedation given, give patient instructions): Kidney Stones (ED) Additional Instructions: Please return to the Emergency Department if symptoms worsen or any other minda rns. Is patient prescribed a controlled substance at d/c from ED?: No Referrals: Gerry Victoria MD [Primary Care Provider] - 1-2 days Raoul Agudelo MD [STAFF PHYSICIAN] - 1-2 days Time of Disposition: 12:26
[2023-04-27 10:59] VITALS: RESP 18
[2023-04-27 11:45] LABS: Basophils % (A) 1 %; Eosinophils # (A) 0.2 k/uL (0-0.7); Eosinophils % (A) 3 %; HCT 40.4 % (34.0-46.0); HGB 13.4 gm/dL (11.4-16.0); Lymphocytes # (A) 1.7 k/uL (1.0-4.8); Lymphocytes % (A) 33 %; MCH 32.3 pg (25.0-35.0); MCHC 33.1 g/dL (31.0-37.0); MCV 97.7 fL (80.0-100.0); Monocytes # (A) 0.3 k/uL (0-1.0); Monocytes % (A) 5 %; Neutrophils # (A) 2.8 k/uL (1.3-7.7); Neutrophils % (A) 55 %; Platelet Count 177 k/uL (150-450); RBC 4.13 m/uL (3.80-5.40); RDW 12.6 % (11.5-15.5)
[2023-04-27 11:55] LABS: ALT 12 U/L (4-34); AST 23 U/L (14-36); African American GFR (CKD) 75 (>60 ml/min/1.73 sqM); Albumin 4.2 g/dL (3.5-5.0); Alkaline Phosphatase 72 U/L (38-126); Anion Gap 8 mmol/L; Blood Urea Nitrogen 10 mg/dL (7-17); Calcium 9.6 mg/dL (8.4-10.2); Carbon Dioxide 24 mmol/L (22-30); Chloride 111 mmol/L (98-107); Glucose 87 mg/dL (74-99); Non-African American GFR(CKD) 65 (>60 ml/min/1.73 sqM); Potassium 4.2 mmol/L (3.5-5.1); Sodium 143 mmol/L (137-145); Total Bilirubin 0.8 mg/dL (0.2-1.3)
[2023-04-27 11:57] LABS: Appearance,Urine Cloudy (Clear); Bilirubin,Urine Negative (Negative); Blood,Urine Large (Negative); Color,Urine Light Red; Glucose,Urine (UA) Negative (Negative); Ketones,Urine Negative (Negative); Leukocyte Esterase,Urine Small (Negative); Mucus,Urine Few /hpf; Nitrite,Urine Negative (Negative); Protein,Urine 1+ (Negative); RBC,Urine >182 /hpf (0-5); Specific Gravity,Urine 1.015 (1.001-1.035); Squamous Epithelial Cell,Urine 4 /hpf (0-4); Urobilinogen,Urine <2.0 mg/dL (<2.0); WBC,Urine 16 /hpf (0-5)
[2023-04-27 12:59] VITALS: BP 156/80; PULSE 76; TEMP 98.4
== END 2023-04-27 12:56 | disposition home or self-care (01) ==
LOC: EC 10:13
DX: N20.0 Calculus of kidney (principal); F17.200 Nicotine dependence, unspecified, uncomplicated; Z91.041 Radiographic dye allergy status; Z91.09 Other allergy status, other than to drugs and biological substances
CPT/HCPCS: 36415; 80053; 81001; 85025; 99284

== ENCOUNTER 2023-05-01 07:34 | Day surgery (SDC) | payer MEDICARE, BC ==
--- NOTE | 2023-04-28 17:56 | P.GSHP ---
History of Present Illness H&P Date: 04/28/23 Chief Complaint: Left hydronephrosis The patient is a 77-year-old white female recently found to have microhematuria. She underwent a right nephrectomy in 2016 for gross hematuria of right renal origin. A computed tomography scan shows evidence of left hydronephrosis due to two left renal pelvic/UPJ calculi measuring approximately 9 mm each. - Constitutional Constitutional: Denies chills, Denies fever - Genitourinary (Female) Genitourinary: Reports hematuria, Reports kidney stones, Denies dysuria Past Medical History Past Medical History: GERD/Reflux, Hypertension, Osteoarthritis (OA) Additional Past Medical History / Comment(s): Chronic SIMEON. OCC DIZZYNESS. OCC GERD. VARICOSE VEINS. lower extremity swelling( pt attributes to only having one kidney) Recent HEMATURIA. kidney stones. pt only has left kidney. hx of angioedema no known cause.sx vary ( facial edema, tongue swelling, throat swelling) pt uses epi-pen,steroids and benadryl as needed. History of Any Multi-Drug Resistant Organisms: None Reported Past Surgical History: Adenoidectomy, Appendectomy, Section, Joint Replacement, Orthopedic Surgery, Tonsillectomy Additional Past Surgical History / Comment(s): Bret Knee Replacement; RT Wrist surgery . removal of rt kidney 2015 Past Anesthesia/Blood Transfusion Reactions: Motion Sickness Additional Past Anesthesia/Blood Transfusion Reaction / Comment(s): ONLY HX OF NV W/ ETHER YEARS AGO. Smoking Status: Current every day smoker - Past Family History Mother Family Medical History: Cancer Additional Family Medical History / Comment(s): lung cancer Medications and Allergies Home Medications Medication Instructions Recorded Confirmed Type Multivitamins, Thera [Multivitamin 1 tab PO DAILY 05/13/14 04/28/23 History (formulary)] Cholecalciferol [Vitamin D3 (25 2,000 unit PO DAILY 05/28/15 04/28/23 History Mcg = 1000 Iu)] Cyanocobalamin [Vitamin B-12] 500 mcg PO DAILY 05/28/15 04/28/23 History Meclizine [Antivert] 25 mg PO TID PRN 05/30/15 04/28/23 History Magnesium 400 mg PO DAILY 10/02/15 04/28/23 History Acetaminophen Tab [Tylenol Tab] 1,000 mg PO BID PRN 06/16/16 04/28/23 History diphenhydrAMINE [Benadryl] 50 mg PO QID PRN #20 capsule 06/16/16 04/28/23 Rx diphenhydrAMINE [Benadryl] 75 mg PO BID PRN 06/16/16 04/28/23 History Unk Prevagen 1 tab PO DAILY 04/28/23 04/28/23 History Unk Cinnamon 1 tab PO DAILY 04/28/23 04/28/23 History Unk Mame 1 tab PO DAILY 04/28/23 04/28/23 History Unk Zinc 1 tab PO DAILY 04/28/23 04/28/23 History amLODIPine BESYLATE [Amlodipine 5 mg PO 1300 04/28/23 04/28/23 History Besylate] methylPREDNISolone Dose Pack 4 mg PO DIRECTED PRN 04/28/23 04/28/23 History [Medrol Dose Pack] Allergies Allergy/AdvReac Type Severity Reaction Status Date / Time cat dander Allergy Unknown Verified 04/28/23 08:51 [place] And Derivatives Allergy Rash/Hives Verified 04/28/23 08:51 [[place]] dog dander Allergy Unknown Verified 04/28/23 08:51 Iodinated Contrast Media Allergy shaking, Verified 04/28/23 08:51 [Iodinated Contrast Media - itching IV Dye] iodine Allergy itching, Verified 04/28/23 08:51 shaking mold Allergy Unknown Verified 04/28/23 08:51 ragweed pollen Allergy Unknown Verified 04/28/23 08:51 trees Allergy Unknown Uncoded 04/28/23 08:51 Surgical - Exam - General well developed, well nourished, no distress - Neck no masses, trachea midline - Respiratory normal respiratory effort - Abdomen Abdomen: soft, tender (Mild right lower quadrant tenderness), no guarding, no rigid, no rebound - Psychiatric oriented to time, oriented to person, oriented to place, speech is normal, memory intact Results - Imaging CT scan - abdomen: report reviewed, image reviewed Assessment and Plan (1) Calculus of kidney Status: Acute Code(s): N20.0 - CALCULUS OF KIDNEY SNOMED Code(s): 57356588 (2) Hydronephrosis with renal and ureteral calculous obstruction Status: Acute Code(s): N13.2 - HYDRONEPHROSIS WITH RENAL AND URETERAL CALCULOUS OBSTRUCTION SNOMED Code(s): 421104245 Plan: Cystoscopy, left ureteroscopy with Holmium laser lithotripsy and possible stone basketing, left ureteral stent insertion. Patient has been made aware of potential risks, which include anesthesia, ureteral injury, and infection. Given the stone burden, a secondary procedure may be required.
[~2023-05-01 07:34] MED LIST: DEXAMETHASONE SOD PHOSPHATE 4 MG/ML 1 ML VIAL IV ONE; HYDROmorphone 0.5 MG/0.5 ML SYRINGE IVP PRN; LACTATED RINGERS 1,000 ML IV SCH; LIDOCAINE 1% (10MG/ML) FOR IV START INTRADERMA PRN; MIDAZOLAM 2 MG/2 ML VIAL IV PRN; ONDANSETRON 4 MG/2 ML VIAL IVP ONE
--- NOTE | 2023-05-01 08:28 | XR ---
EXAMINATION TYPE: XR KUB DATE OF EXAM: 05/01/2023 COMPARISON: None INDICATION: Left UPJ calculus TECHNIQUE: Single view abdomen frontal projection FINDINGS: There is a normal bowel gas pattern. Psoas margins are normal. No organomegaly is present. Surgical clips are through the right renal bed right hemipelvis. Scattered small calcifications are l eft ureteral pelvic junction. There may be a group of small rounded calcifications enmassed at the le ft ureteropelvic junction measuring 1.4 x 0.9 cm IMPRESSION: 1. Small rounded calcifications totaling 1.4 x 0.9 cm left
[2023-05-01] MEDS ORDERED: fentaNYL (PF) 50 MCG/ML 2 ML AMP ONE (09:03)
[2023-05-01] MEDS ORDERED: MIDAZOLAM 2 MG/2 ML VIAL ONE (09:03)
[2023-05-01] MEDS ORDERED: LIDOCAINE 1% INJ 10MG/ML (20 ML MDV) ONE (09:03)
[2023-05-01] MEDS ORDERED: SUCCINYLCHOLINE CHLORIDE 200 MG/10 ML VIAL IV ONE (09:03)
[2023-05-01] MEDS ORDERED: PROPOFOL 10 MG/ML 20 ML VIAL IV ONE (09:03)
[2023-05-01] MEDS ORDERED: PHENYLEPHRINE-0.9% NACL SYG 1,000 MCG/10 ML SYRINGE ONE (09:03)
--- NOTE | 2023-05-01 09:46 | P.OP ---
Date of Procedure: 05/01/23 Preoperative Diagnosis: Left hydronephrosis secondary to left ureteral calculi Postoperative Diagnosis: Same Procedure(s) Performed: Cystoscopy, left ureteral stent insertion Anesthesia: DENNYSA Surgeon: Raoul Agudelo Estimated Blood Loss (ml): 0 IV fluids (ml): 300 Pathology: none sent Condition: stable Disposition: PACU Indications for Procedure: The patient is a 77-year-old white female recently found to have microhematuria. She underwent a right nephrectomy in 2016 for gross hematuria of right renal origin. A CT scan shows evidence of left hydronephrosis due to two left renal pelvic/UPJ calculi measuring approximately 9 mm each. Operative Findings: Two obstructing left ureteral calculi, one at the level of the iliac vessels and the other adjacent to the transverse process of L-4. Description of Procedure: The patient was taken to the operating room and placed in the dorsolithotomy position, with legs supported in Jeffery stirrups. The external genitalia was prepped and draped sterilely. The 30 lens was used to introduce the 22-Guyanese Stortz cystoscopic sheath through the urethra and into the bladder under direct vision. The bladder was examined in its entirety. Both ureteral orifices were of normal anatomic location and configuration. No tumors or foreign bodies were seen. A 0.035 inch Glidewire was passed through the cystoscope. The left ureteral orifice was cannulated, and the Glidewire was slowly advanced up to the level of the iliac vessels, where resistance was met due to an obstructing calculus. It was possible to advance the Glidewire beyond this calculus, but it could not be passed beyond a second calculus adjacent to the transverse process of L4. Therefore, an open-ended catheter was advanced over the wire, distal to the more proximal of the 2 calculi. The Glidewire was then exchanged for an angle-tip wire, which was passed beyond the more proximal calculus and up to the left renal pelvis, where it coiled. A 26 cm, 6-Guyanese double-J ureteral stent was placed over the wire. Proper stent positioning was verified fluoroscopically and endoscopically. The bladder was emptied and the cystoscope removed. The patient tolerated the procedure well was taken to the recovery room in stable condition.
[2023-05-01 10:05] VITALS: TEMP 96.8
[2023-05-01 10:29] VITALS: RESP 20
[2023-05-01 10:52] VITALS: BP 137/78; PULSE 68
--- NOTE | 2023-05-01 13:20 | FL ---
EXAMINATION TYPE: FL guidance operating room DATE OF EXAM: 05/01/2023 Comparison: CT 04/24/2023 Clinical History: 77-year-old female N20.0 LEFT UPJ CALCULUS Findings: fl 1.37 sec dap 97.5 mGycm2. left stent placement 4 images submitted. Impression: Procedural fluoroscopy as above.
== END 2023-05-01 10:53 | disposition home or self-care (01) ==
LOC: OR 07:34
PROVIDERS: ATTEND Urology
DX: N13.2 Hydronephrosis with renal and ureteral calculous obstruction (principal); K21.9 Gastro-esophageal reflux disease without esophagitis; I10 Essential (primary) hypertension; M19.90 Unspecified osteoarthritis, unspecified site; I83.90 Asymptomatic varicose veins of unspecified lower extremity; F17.200 Nicotine dependence, unspecified, uncomplicated; Z80.1 Family history of malignant neoplasm of trachea, bronchus and lung; Z87.442 Personal history of urinary calculi; Z79.899 Other long term (current) drug therapy; Z88.8 Allergy status to other drugs, medicaments and biological substances; Z91.041 Radiographic dye allergy status; Z96.653 Presence of artificial knee joint, bilateral; Z90.49 Acquired absence of other specified parts of digestive tract; Z98.890 Other specified postprocedural states
CPT/HCPCS: 74018; 52332; C1769 ×2; C1758; J2250; J0330; J1100; J0690; J2405; J2001; J3010; J2704; J2371

== ENCOUNTER 2023-05-15 06:26 | Day surgery (SDC) | payer MEDICARE, BC ==
[2023-05-09 11:44] VITALS: BMI 25.5
--- NOTE | 2023-05-12 03:30 | P.GSHP ---
History of Present Illness H&P Date: 05/12/23 Chief Complaint: Left hydronephrosis The patient is a 77-year-old white female recently found to have microhematuria. She underwent a right nephrectomy in 2015 for gross hematuria of right renal origin. A CT scan showed evidence of left hydronephrosis due to two left renal pelvic/UPJ calculi measuring approximately 9 mm each. An additional left lower pole renal calculus was seen measuring approximately 3.5 x 5.8 mm in size. She underwent left ureteral stent insertion 05/01/2023. At that time, it was determined that one at the calculi was located at the level of the iliac vessels and the other was adjacent to the transverse process of L-4. - Constitutional Constitutional: Denies chills, Denies fever - Genitourinary (Female) Genitourinary: Reports hematuria, Reports kidney stones, Denies dysuria Past Medical History Past Medical History: GERD/Reflux, Osteoarthritis (OA) Additional Past Medical History / Comment(s): Chronic SIMEON. OCC DIZZYNESS. OCC GERD. VARICOSE VEINS. lower extremity swelling( pt attributes to only having one kidney) Recent HEMATURIA. kidney stones. pt only has left kidney. hx of angioedema no known cause.sx vary ( facial edema, tongue swelling, throat swelling) pt uses epi-pen,steroids and benadryl as needed. History of Any Multi-Drug Resistant Organisms: None Reported Past Surgical History: Adenoidectomy, Appendectomy, Section, Joint Replacement, Orthopedic Surgery, Tonsillectomy Additional Past Surgical History / Comment(s): Bret Knee Replacement; RT Wrist surgery . removal of rt kidney 2015 Past Anesthesia/Blood Transfusion Reactions: Motion Sickness Additional Past Anesthesia/Blood Transfusion Reaction / Comment(s): ONLY HX OF NV W/ ETHER YEARS AGO. Smoking Status: Current every day smoker - Past Family History Mother Family Medical History: Cancer Additional Family Medical History / Comment(s): lung cancer Medications and Allergies Home Medications Medication Instructions Recorded Confirmed Type Multivitamins, Thera [Multivitamin 1 tab PO DAILY 05/13/14 05/09/23 History (formulary)] Cholecalciferol [Vitamin D3 (25 50 mcg PO DAILY 05/28/15 05/09/23 History Mcg = 1000 Iu)] Cyanocobalamin [Vitamin B-12] 500 mcg PO DAILY 05/28/15 05/09/23 History Meclizine [Antivert] 25 mg PO TID PRN 05/30/15 05/09/23 History Magnesium 400 mg PO DAILY 10/02/15 05/09/23 History Acetaminophen Tab [Tylenol Tab] 1,000 mg PO DAILY PRN 06/16/16 05/09/23 History diphenhydrAMINE [Benadryl] 50 mg PO QID PRN #20 capsule 06/16/16 05/09/23 Rx diphenhydrAMINE [Benadryl] 100 mg PO BID PRN 06/16/16 05/09/23 History Unk Prevagen 1 tab PO DAILY 04/28/23 05/09/23 History Cinnamon Bark [Cinnamon] 1,500 mg PO DAILY 04/28/23 05/09/23 History Mame 500 mg PO DAILY 04/28/23 05/09/23 History Zinc Gluconate [Zinc] 50 mg PO DAILY 04/28/23 05/09/23 History amLODIPine BESYLATE [Amlodipine 5 mg PO 1300 04/28/23 05/09/23 History Besylate] methylPREDNISolone Dose Pack 4 mg PO DIRECTED PRN 04/28/23 05/09/23 History [Medrol Dose Pack] Allergies Allergy/AdvReac Type Severity Reaction Status Date / Time cat dander Allergy Unknown Verified 05/09/23 10:48 [place] And Derivatives Allergy Rash/Hives Verified 05/09/23 10:48 [[place]] dog dander Allergy Unknown Verified 05/09/23 10:48 Iodinated Contrast Media Allergy shaking, Verified 05/09/23 10:48 [Iodinated Contrast Media - itching IV Dye] iodine Allergy itching, Verified 05/09/23 10:48 shaking mold Allergy Unknown Verified 05/09/23 10:48 ragweed pollen Allergy Unknown Verified 05/09/23 10:48 trees Allergy Unknown Uncoded 05/09/23 10:48 Surgical - Exam - General well developed, well nourished, no distress - Respiratory normal respiratory effort - Abdomen Abdomen: soft, tender (Mild right lower quadrant tenderness), no guarding, no rigid, no rebound - Genitourinary normal external genitalia - Psychiatric oriented to time, oriented to person, oriented to place, speech is normal, memory intact Results - Imaging CT scan - abdomen: report reviewed, image reviewed Assessment and Plan (1) Calculus of kidney Status: Acute Code(s): N20.0 - CALCULUS OF KIDNEY SNOMED Code(s): 25775705 (2) Calculus of ureter Status: Acute Code(s): N20.1 - CALCULUS OF URETER SNOMED Code(s): 33873852 Plan: Cystoscopy, left ureteral stent removal, left ureteroscopy with Holmium laser lithotripsy and possible stone basketing. Patient has been made aware of potential risks, which include anesthesia, ureteral injury, and infection.
[2023-05-15] MEDS ORDERED: LACTATED RINGERS 1,000 ML IV ONE (07:15)
--- NOTE | 2023-05-15 07:25 | XR ---
EXAMINATION TYPE: XR KUB DATE OF EXAM: 05/15/2023 Comparison: 05/01/2023 Clinical History: 77-year-old female N20.1 left UPJ calculus Findings: Cholecystectomy clips. Left ureteral stent. Multiple surgical clips in the right side of the pelvis a s well. Moderate stool burden. Nonobstructive bowel gas pattern. 3 calculi are seen along the course of the left ureteral stent along the proximal and middle portion measuring 5 mm, 1.0 cm, and 9 mm. Impression: A series of 3 calculi along the proximal to midportion of the left ureteral stent measuring 5 mm, 10 mm, 9 mm.
[2023-05-15] MEDS ORDERED: MIDAZOLAM 2 MG/2 ML VIAL IV PRN (07:28)
[2023-05-15] MEDS ORDERED: LACTATED RINGERS 1,000 ML IV SCH (07:28)
[2023-05-15] MEDS ORDERED: DEXAMETHASONE SOD PHOSPHATE 4 MG/ML 1 ML VIAL IV ONE (07:28)
[2023-05-15] MEDS ORDERED: ONDANSETRON 4 MG/2 ML VIAL IVP ONE ×2 (07:28→10:33)
[2023-05-15] MEDS ORDERED: HYDROmorphone 0.5 MG/0.5 ML SYRINGE IVP PRN (07:28)
[2023-05-15] MEDS ORDERED: FAMOTIDINE 20 MG/2 ML VIAL IVP ONE (07:50)
[2023-05-15 07:53] VITALS: TEMP 96.9
[2023-05-15] MEDS ORDERED: fentaNYL (PF) 50 MCG/ML 2 ML AMP ONE (08:11)
[2023-05-15] MEDS ORDERED: GLYCOPYRROLATE 0.2 MG/ML 2 ML VIAL ONE (08:11)
[2023-05-15] MEDS ORDERED: FUROSEMIDE 10 MG/ML 4 ML VIAL ONE (08:11)
[2023-05-15] MEDS ORDERED: SUCCINYLCHOLINE CHLORIDE 200 MG/10 ML VIAL IV ONE (08:11)
[2023-05-15] MEDS ORDERED: ROCURONIUM 10 MG/ML (5 ML VIAL) IV ONE (08:11)
[2023-05-15] MEDS ORDERED: PROPOFOL 10 MG/ML 20 ML VIAL IV ONE (08:11)
[2023-05-15] MEDS ORDERED: MIDAZOLAM 2 MG/2 ML VIAL ONE (08:11)
[2023-05-15] MEDS ORDERED: NEOSTIGMINE 1 MG/ML 10 ML VIAL ONE (08:11)
[2023-05-15] MEDS ORDERED: PHENYLEPHRINE-0.9% NACL SYG 1,000 MCG/10 ML SYRINGE ONE (08:11)
--- NOTE | 2023-05-15 09:48 | P.OP ---
Date of Procedure: 05/15/23 Preoperative Diagnosis: Left ureteral calculi Postoperative Diagnosis: Same Procedure(s) Performed: Cystoscopy, left ureteral stent removal, left ureteroscopy with Holmium laser lithotripsy and stone basketing Anesthesia: SUZANNA Surgeon: Raoul Agudelo Estimated Blood Loss (ml): 10 IV fluids (ml): 600 Pathology: other (Left ureteral calculus fragments, sent for chemical analysis) Condition: stable Disposition: PACU Indications for Procedure: The patient is a 77-year-old white female recently found to have microhematuria. She underwent a right nephrectomy in 2016 for gross hematuria of right renal origin. A CT scan showed evidence of left hydronephrosis due to two left renal pelvic/UPJ calculi measuring approximately 9 mm each. An additional left lower pole renal calculus was seen measuring approximately 3.5 x 5.8 mm in size. She underwent left ureteral stent insertion 05/01/2023. At that time, it was determined that one at the calculi was located at the level of the iliac vessels and the other was adjacent to the transverse process of L-4. Operative Findings: 2 large left ureteral calculi, both fragmented and removed completely. Description of Procedure: The patient was taken to the operating room and placed in the dorsolithotomy position, with legs supported in Jeffery stirrups. The external genitalia was prepped and draped sterilely. The 30 lens was used to introduce the 21-Uzbek cystoscopic sheath through the urethra and into the bladder under direct vision. The bladder was examined in its entirety. No abnormalities were seen. Grasping forceps were used to grasp the distal end of the left ureteral stent, which was removed along with the cystoscope. The semirigid ureteroscope was advanced into the bladder, and the left ureteral orifice was cannulated. The ureteroscope was slowly advanced under direct vision, up to the mid ureteral calculus. The 365 micron Holmium laser probe was passed through the ureteroscope, and lithotripsy was performed. Once that calculus was fragmented, the ureteroscope was advanced to the more proximal of the ureteral calculi, and lithotripsy was performed. Once both calculi had been sufficiently fragmented, a 1.9-Uzbek nitinol basket was used to retrieve calculus fragments from the ureter. These were saved and sent for chemical analysis. Final inspection of the ureter showed no residual calculus fragments, and no evidence of ureteral trauma. The cystoscope was replaced into the bladder to drain the bladder, and the procedure was terminated. The patient tolerated the procedure well and was taken to the recovery room in stable condition. [facility] Report: Procedure Acuity: Elective Stone Size and Location: Left mid ureteral calculus, left proximal ureteral calculus, both measuring approximately 9 mm Ureteral Dilation: No Ureteral Access Sheath Used: No Stone Sent for Analysis: Yes All Stones/Fragments Were Removed with a Basket: Yes Complications: No Preoperative Antibiotics Given: Yes Stent Placed: No Discharge Medications: None
--- NOTE | 2023-05-15 10:37 | FL ---
EXAMINATION TYPE: FL guidance operating room Intraoperative/procedural fluoroscopic services were pro vided. Total fluoroscopy time is 9 seconds with a total of 1 submitted images to PACS. Please see the operative/procedural note for further details. DAP: [id number] Gycm2
[2023-05-15] MEDS ORDERED: droPERidol 5 MG/2 ML VIAL IVP ONE (11:45)
[2023-05-15] MEDS ORDERED: KETOROLAC 15 MG/ML 1 ML VIAL ONE (13:05)
[2023-05-15] MEDS ORDERED: KETOROLAC 15 MG/ML 1 ML VIAL IVP ONE (13:09)
[2023-05-15 13:52] VITALS: BP 120/62; PULSE 70; RESP 17
== END 2023-05-15 14:17 | disposition home or self-care (01) ==
LOC: OR 06:26
PROVIDERS: ATTEND Urology
DX: N20.1 Calculus of ureter (principal); Z96.0 Presence of urogenital implants; Z90.5 Acquired absence of kidney; K21.9 Gastro-esophageal reflux disease without esophagitis; M19.90 Unspecified osteoarthritis, unspecified site; Z90.49 Acquired absence of other specified parts of digestive tract; Z79.899 Other long term (current) drug therapy; Z91.041 Radiographic dye allergy status; Z91.09 Other allergy status, other than to drugs and biological substances; Z91.018 Allergy to other foods; Z87.891 Personal history of nicotine dependence
CPT/HCPCS: 82365; 74018; 52353; C1769; J2250; J0330; J1100; J1940; J2710; J0690; J2405; J3010; J3490; J1885; J2704; J1170; J1790; J2371

== ENCOUNTER → 2023-06-27 | Outpatient (CLI) | payer MEDICARE, BC ==
--- NOTE | 2023-06-27 13:07 | XR ---
EXAMINATION TYPE: XR chest 2V DATE OF EXAM: 06/27/2023 COMPARISON: 11/20/2015. HISTORY: Hydronephrosis. TECHNIQUE: Frontal and lateral views of the chest are obtained. FINDINGS: There is no focal air space opacity, pleural effusion, or pneumothorax seen. The cardiac silhouette size is within normal limits. The osseous structures are intact. IMPRESSION: No acute cardiopulmonary process.
== END | disposition home or self-care (01) ==
LOC: RADXRMAIN 12:49
PROVIDERS: ATTEND Urology
DX: N13.2 Hydronephrosis with renal and ureteral calculous obstruction (principal)
CPT/HCPCS: 71046

== ENCOUNTER → 2023-06-27 | Outpatient (CLI) | payer MEDICARE, BC ==
--- NOTE | 2023-06-27 12:57 | US ---
EXAMINATION TYPE: US kidneys/renal and bladder DATE OF EXAM: 06/27/2023 COMPARISON: US CLINICAL INDICATION: Female, 77 years old with history of N13.2 HYDRONEPHROSIS WITH RENAL AND URETERA L CALCU; F/U prior left hydro, right kidney surgically absent EXAM MEASUREMENTS: Left Kidney: 12.0 x 6.1 x 4.4 cm Right Kidney: Surgically absent Left Kidney: Possible 2 calculi at lower pole= 6 and 5mm in size, mildly dilated renal pelvis Bladder: wnl Bilateral Jets seen: Left jet visualized No masses are identified. The urinary bladder is anechoic. Bilateral ureteral jets are seen. IMPRESSION: Mild left-sided hydronephrosis with probable calculi lower pole left kidney.
== END | disposition home or self-care (01) ==
LOC: RADUSWWP 12:13
PROVIDERS: ATTEND Urology
DX: N13.2 Hydronephrosis with renal and ureteral calculous obstruction (principal); Z90.5 Acquired absence of kidney
CPT/HCPCS: 76770

== ENCOUNTER → 2023-08-26 | Outpatient (CLI) | payer MEDICARE, BC ==
[2023-08-26 15:01] LABS: Appearance,Urine Clear (Clear); Bilirubin,Urine Negative (Negative); Blood,Urine Negative (Negative); Color,Urine Yellow (Yellow); Ketones,Urine Trace (Negative); Nitrite,Urine Negative (Negative); PH, Urine 6.5
[2023-08-26 15:34] LABS: % Iron Saturation 23.39 (12.00-45.00); Chol/HDL Ratio 2.76 Ratio; Iron 69 UG/DL (50-170); LDL Cholesterol,Calculated 117.6 mg/dL (0.0-131.0); Magnesium 2.1 mg/dL (1.5-2.4); Phosphorus 3.6 mg/dL (2.4-5.1); Total Iron Binding Capacity 295 UG/DL (228-460); Uric Acid 3.8 mg/dL (2.9-7.7)
[2023-08-26 15:35] LABS: ALT 11 U/L (8-44); AST 19 U/L (13-35); Albumin/Globulin Ratio 1.82 Ratio (1.60-3.17); Alkaline Phosphatase 78 U/L (41-126); Blood Urea Nitrogen 16.3 mg/dL (9.0-27.0); Calcium 9.6 mg/dL (8.7-10.3); Carbon Dioxide 22.7 mmol/L (21.6-31.8); Chloride 110 mmol/L (96-109); Globulin 2.2 g/dL (1.6-3.3); Glucose 98 mg/dL (70-110); Potassium 4.2 mmol/L (3.5-5.5); Sodium 143 mmol/L (135-145); Total Bilirubin 0.2 mg/dL (0.3-1.2); Total Protein 6.2 g/dL (6.2-8.2)
[2023-08-26 15:52] LABS: Basophils # (A) 0.08 X 10*3/uL (0.00-0.10); Basophils % (A) 1.4 %; Eosinophils # (A) 0.25 X 10*3/uL (0.04-0.35); Eosinophils % (A) 4.5 %; HCT 43.5 % (37.2-46.3); Lymphocytes # (A) 2.11 X 10*3/uL (0.90-5.00); Lymphocytes % (A) 37.9 %; MCH 31.5 pg (27.0-32.0); MCHC 32.2 g/dL (32.0-37.0); Mean Platelet Volume 11.3 FL (9.5-12.2); Monocytes # (A) 0.53 X 10*3/uL (0.20-1.00); Monocytes % (A) 9.5 %; NRBC Per 100 WBC 0 X 10*3/uL (0.00-0.01); Neutrophils # (A) 2.59 X 10*3/uL (1.80-7.70); Neutrophils % (A) 46.5 %; Platelet Count 201 X 10*3/uL (140-440); RBC 4.44 X 10*6/uL (4.10-5.20); RDW 13.3 % (11.5-14.5); WBC 5.57 X 10*3/uL (4.50-10.00)
[2023-08-26 16:40] LABS: Bacteria,Urine Trace (None Seen); Calcium Oxalate Crystals,Urine Present (None Seen); Yeast (UA) Present (None Seen)
== END | disposition home or self-care (01) ==
LOC: LABWHC1 08:53
PROVIDERS: ATTEND Internal Medicine
DX: Z00.00 Encounter for general adult medical examination without abnormal findings (principal); I12.9 Hypertensive chronic kidney disease with stage 1 through stage 4 chronic kidney disease, or unspecified chronic kidney disease; N20.0 Calculus of kidney; N18.30 Chronic kidney disease, stage 3 unspecified
CPT/HCPCS: 36415; 80053; 80061; 81001; 82043; 82306; 82570; 82728; 83540; 83550; 83735; 83970; 84100; 84443; 84550; 85025

== ENCOUNTER → 2024-08-09 | Outpatient (CLI) | payer MEDICARE, BC ==
[2024-08-09 15:35] LABS: Eosinophils % (A) 3.9 %; HCT 44.4 % (37.2-46.3); HGB 14.3 g/dL (12.0-15.0); Lymphocytes # (A) 2.18 X 10*3/uL (0.90-5.00); Lymphocytes % (A) 42.7 %; MCH 31.4 pg (27.0-32.0); MCHC 32.2 g/dL (32.0-37.0); MCV 97.4 FL (80.0-97.0); Mean Platelet Volume 11.5 FL (9.5-12.2); Monocytes # (A) 0.52 X 10*3/uL (0.20-1.00); Monocytes % (A) 10.2 %; NRBC Per 100 WBC 0 X 10*3/uL (0.00-0.01); Neutrophils # (A) 2.09 X 10*3/uL (1.80-7.70); Platelet Count 200 X 10*3/uL (140-440); RBC 4.56 X 10*6/uL (4.10-5.20); RDW 13.2 % (11.5-14.5)
[2024-08-09 16:06] LABS: % Iron Saturation 20.33 (12.00-45.00); ALT 10 U/L (8-44); AST 19 U/L (13-35); Albumin 3.9 g/dL (3.8-4.9); Alkaline Phosphatase 78 U/L (41-126); Blood Urea Nitrogen 10.6 mg/dL (9.0-27.0); Calcium 9.4 mg/dL (8.7-10.3); Chloride 105 mmol/L (96-109); Chol/HDL Ratio 3.63 Ratio; Globulin 2.3 g/dL (1.6-3.3); Glucose 91 mg/dL (70-110); Iron 61 UG/DL (50-170); LDL Cholesterol,Calculated 140.6 mg/dL (0.0-131.0); Magnesium 2.1 mg/dL (1.5-2.4); Phosphorus 4.1 mg/dL (2.4-5.1); Potassium 4.2 mmol/L (3.5-5.5); Sodium 138 mmol/L (135-145); Total Bilirubin 0.3 mg/dL (0.3-1.2); Total Iron Binding Capacity 300 UG/DL (228-460); Total Protein 6.2 g/dL (6.2-8.2); Uric Acid 3.8 mg/dL (2.9-7.7)
[2024-08-09 21:16] LABS: Microalbumin Creatinine Ratio <19 mg/g Cr (0-30); Urine Creatinine 63.5 mg/dL (28.0-217.0)
== END | disposition home or self-care (01) ==
LOC: LABWHC1 09:08
PROVIDERS: ATTEND Nurse Practitioner Family
DX: Z00.00 Encounter for general adult medical examination without abnormal findings (principal); N18.31 Chronic kidney disease, stage 3a; N20.0 Calculus of kidney
CPT/HCPCS: 36415; 80053; 80061; 82043; 82306; 82570; 82728; 83540; 83550; 83735; 83970; 84100; 84439; 84443; 84550; 85025